=== PATIENT | female | born 1955 | race Caucasian/White ===

== ENCOUNTER 2024-10-22 10:44 | Outpatient (CLI) | payer MEDICARE, SELFPAY ==
--- NOTE | ~2024-10-22 | XR_ITS ---
XR abdomen/kub 1V Ordering provider: Clifford Kiran MD History: . RENAL MASS . Comparison: None. FINDINGS: BOWEL: Nonobstructive bowel gas pattern. ORGANOMEGALY: None. SIGNIFICANT PATHOLOGIC CALCIFICATIONS: None. OTHER: No free air is seen under the diaphragm. Bilateral arthroplasty. Pubic symphysitis. Levoscolio sis. Degenerative spine. IMPRESSION: NO ACUTE ABDOMINAL FINDINGS. Reviewed, dictated and finalized at location A.
--- NOTE | ~2024-10-22 | CT_ITS ---
CT of the Abdomen and Pelvis: Indication: Renal mass Technique: 2.5 mm axial scans were obtained through the abdomen and pelvis prior to and following in travenous administration of 100 cc of Omnipaque 350. Dose reduction technique was used on this scan b y utilizing automated exposure control and iterative reconstruction technique. The dose-length produc t (DLP) was 382.85 mGy-cm. Findings: Scans through the lung bases are unremarkable. The liver, spleen, pancreas, gallbladder, and adrenal glands are within normal limits. Bilateral simp le renal cysts are present. There is decreased parenchymal enhancement at the upper to midpole right kidney which could reflect pyelonephritis. There are extensive atherosclerotic calcifications of the aorta and iliac vessels. No lymphadenopathy. No bowel obstruction or bowel wall thickening. There is no evidence to suggest acute appendicitis. Images through the pelvis are degraded by streak artifact from bilateral hip arthroplasty. Urinary bl adder poorly imaged. No definite pelvic mass seen. No definite ascites. Impression: Decreased parenchymal enhancement at the upper to midpole the right kidney, which could reflect pyelo nephritis. Bilateral simple renal cysts. No suspicious renal mass seen. Reviewed, dictated and finalized at location . Impression: Decreased parenchymal enhancement at the upper to midpole the right kidney, whi ch could reflect pyelonephritis. Bilateral simple renal cysts. No suspicious renal mass seen.
--- OUTSIDE RECORDS SUMMARY | 2024-10-22 11:27 | XMS_ITS | Data Portability ---
Author Organization [facility]MarcieCorrection[facility] Address [address] [place] [address] Care Team Providers Care Packaging Clerk Name Role Phone OVIDIO DOWNEY Primary Care Provider Assessment No assessment recorded. Plan of Treatment Reminders Order Date Submit Date Provider Last Modified By Organization Details Last Modified Time Details Appointments ANY 2024 01:45P Evelyne Downey, DO Not available Not available Not available ANY 2024 07:30A Evelyne Downey, DO Not available Not available Not available Lab BMP, serum or plasma 2024 025 [email or web address] [facility], [facility], [facility] [address], [place], [address], 07/16/2024 08:54:35 TSH + free T4, serum 2024 025 [facility], [address], [facility] [address], [place], [address], 07/16/2024 08:54:35 CBC w/ auto diff 2024 025 [facility], [address], [address], [place], [address], 07/16/2024 08:54:35 lipid panel, serum 2024 025 [email or web address] [facility], [address], [address], [place], [address], 07/16/2024 08:54:35 hepatic functio n panel, serum 2024 025 [email or web address] [facility], [address], [address], [place], [address], 07/16/2024 08:54:35 vitamin B12, serum 2024 025 [email or web address] [facility], [address], [address], [place], [address], 07/16/2024 08:54:35 urinaly sis, dipstic k 2023 024 [email or web address] In-Office Order, Internal Use Only DO Not Attach Compendium DO Not Attach Compendium, Do Not Delete/merge, [id number] 01/13/2024 10:16:30 urinaly sis, complet e 2023 024 WEAVER [facility], [address], [address], [place], [address], 12/21/2023 06:00:12 CBC w/ auto diff 2023 024 JOSIAH [facility], [address], [address], [place], [address], 12/21/2023 06:00:12 BMP, serum or plasma 2023 024 WEAVER [facility], [address], [address], [place], [address], 12/21/2023 06:00:11 vitamin B12, serum 2023 024 [facility], [address], [address], [place], [address], 12/21/2023 06:00:13 vitamin D, 25-hydr oxy, total, serum 2023 024 [facility], [address], [address], [place], [address], 12/21/2023 06:00:13 lipid panel, serum 2023 024 [facility], [address], [address], [place], [address], 12/21/2023 06:00:10 hepatic functio n panel, serum 2023 024 [facility], [address], [address], [place], [address], 12/21/2023 06:00:11 TSH + free T4, serum 2023 024 [facility], [address], [address], [place], [address], 08/02/2023 06:47:35 Referral gynecol ogist referra l 2023 024 [email or web address] [facility], [address] [facility] , [address], [place], [address], 01/13/2024 10:16:30 Procedures None recorde d. Surgeries None recorde d. Imaging US, renal 2024 025 [facility] Patient Access Centralized Scheduling, Centralized Scheduling, [address], [place], [address], 09/13/2024 21:05:34 Medication Orders levothy roxine 50 mcg tablet 2024 025 [email or web address] [facility] [place], [address], 08/23/2024 18:25:54 cyanoco balamin (vit B-12) 1,000 mcg/mL injecti on solutio n 2024 025 [email or web address] [facility], [facility] [place], [address], 08/23/2024 18:25:54 Macrobi d 100 mg capsule 2023 025 [id number], [address] [facility], [place], [place], [id number], 08/15/2024 17:52:19 Patient TargetsNo targets recorded. Patient InstructionsNo instructions recorded. Reason for Referral Licensing And Registration Director Referral for Ho rmone replacement therapy Referring Physician: Ovidio Downey, Family Medicine, Encounter Date: 01/13/2024 Results Created Date Observation Date Name Description Value Unit Range Abnormal Flag Note LastModifiedBy Organization Detail LastModifiedTime 08/01/19 24 08/02/2023 TSH+F REE T4 TSH 3.27 mIU/L 0.40-4 .50 normal Not Available [facility] [address], [address], 08/02/2023 06:47:35 08/01/19 24 08/02/2023 TSH+F REE T4 T4, free 1.1 NG/dL 0.8-1. 8 normal Not Available [facility] [address], [address], 08/02/2023 06:47:35 09/19/19 24 09/20/2023 MEASL ES, MUMPS , AND RUBEL LA (MMR) AB (IGG) PANEL , IMMUN E STATU S measles Ab (IgG), immune status <13.50 AU/mL low AU/mL Inter preta tion ----- ----- ----- ---- <13.5 0 Not consi stent with immun ity 13.50 -16.4 9 Equiv ocal >16.4 9 Consi stent with immun ity The prese nce of measl es IgG sugge sts immun izati on or past or curre nt infec tion with measl es virus . For addit ional infor alejandra ochoa e refer to http: //riri gunn.Que stDia gnost ics.c om/fa q/FAQ 162 (This link is being provi ded for infor nury murphy/ educa raza l ashleyo ses only. ) Not Available [facility] [address] [address] [place], [address], 09/20/2023 13:40:35 09/19/19 24 09/20/2023 MEASL ES, MUMPS , AND RUBEL LA (MMR) AB (IGG) PANEL , IMMUN E STATU S mumps virus Ab (IgG), immune status 91.80 AU/mL normal AU/mL Inter preta tion ----- -- ----- ----- ----- - <9.00 Not consi stent with immun ity 9.00- 10.99 Equiv ocal >10.9 9 Consi stent with immun ity The prese nce of mumps IgG antib real sugge sts immun izati on or past or curre nt infec tion with mumps virus . Not Available [facility] [address] [address] [place], [address], 09/20/2023 13:40:35 09/19/19 24 09/20/2023 MEASL ES, MUMPS , AND RUBEL LA (MMR) AB (IGG) PANEL , IMMUN E STATU S rubella Ab (IgG), immune status 9.17 index normal Index Inter preta tion ----- ----- ----- ---- <0.90 Not consi stent with immun ity 0.90- 0.99 Equiv ocal > or = 1.00 Consi stent with immun ity The prese nce of rubel la IgG antib real sugge sts immun izati on or past or curre nt infec tion with rubel la virus . Not Available [facility] [address] [place], [address], 09/20/2023 13:40:35 12/20/19 24 12/21/2023 LIPID PANEL WITH RATIO S cholesterol, total 196 mg/dL <200 normal Not Available [facility] [id number] [place], [address], 12/21/2023 06:00:10 12/20/19 24 12/21/2023 LIPID PANEL WITH RATIO S HDL cholesterol 89 mg/dL > or = 50 normal Not Available [facility] [address] [address] [place], [address], 12/21/2023 06:00:10 12/20/19 24 12/21/2023 LIPID PANEL WITH RATIO S triglyceride s 65 mg/dL <150 normal Not Available [facility] [address] [address] [place], [address], 12/21/2023 06:00:10 12/20/19 24 12/21/2023 LIPID PANEL WITH RATIO S LDL-choleste rol 92 mg/dL _(danny c) normal Refer ence range : <100 Shawn able range <100 mg/dL for prima ry preve ntion ; <70 mg/dL for patie nts with CHD or diabe tic patie nts with > or = 2 CHD risk facto rs. LDL-C is now calcu lated using the Hansa n-Hop kins angelou karthikeyan n, which is a valid ated novel logan kang than the Fried huong equat ion in the estim ation of LDL-C . Hansa gunn SS et al. MIKHAIL. 2013; 310(1 9): 2061- 2068 (http ://ed ucati on.Qu Jourdan morton tics. com/f aq/FA Q164) Not Available [facility] [address] [place], [address], 12/21/2023 06:00:10 12/20/19 24 12/21/2023 LIPID PANEL WITH RATIO S chol/HDLC ratio 2.2 (calc ) <5.0 normal Not Available [facility] [address] [address] [place], [address], 12/21/2023 06:00:10 12/20/19 24 12/21/2023 LIPID PANEL WITH RATIO S LDL/HDL ratio 1.0 (calc ) Below avera ge Risk: <2.34 [place] ge Risk: 2.35- 4.12 Moder ate Risk: 4.13- 5.56 High Risk: >5.57 Not Available [address], [address], 12/21/2023 06:00:10 12/20/19 24 12/21/2023 LIPID PANEL WITH RATIO S non HDL cholesterol 107 mg/dL _(danny c) <130 normal For patie nts with diabe tim plus 1 major ASCVD risk facto r, treat ing to a non-H DL-C goal of <100 mg/dL (LDL- C of <70 mg/dL ) is consi yousuf a ruth peuti c optio n. Not Available [address], [address], 12/21/2023 06:00:10 12/20/19 24 12/21/2023 BASIC METAB OLIC PANEL glucose 85 mg/dL 65-99 normal Fasti ng refer ence inter aliza Not Available [address], [address], 12/21/2023 06:00:11 12/20/19 24 12/21/2023 BASIC METAB OLIC PANEL urea nitrogen (BUN) 17 mg/dL 7-25 normal Not Available [address], [address], 12/21/2023 06:00:11 12/20/19 24 12/21/2023 BASIC METAB OLIC PANEL creatinine 0.86 mg/dL 0.50-1 .05 normal Not Available [address], [address], 12/21/2023 06:00:11 12/20/19 24 12/21/2023 BASIC METAB OLIC PANEL eGFR 74 mL/mi n/1.7 3m2 > or = 60 normal Not Available [address] [place], [address], 12/21/2023 06:00:11 12/20/19 24 12/21/2023 BASIC METAB OLIC PANEL BUN/creatini ne ratio SEE NOTE: (calc ) 6-22 Not Repor annita: BUN and Creat inine are withi n refer ence range . Not Available [address], [address], 12/21/2023 06:00:11 12/20/19 24 12/21/2023 BASIC METAB OLIC PANEL sodium 139 mmol/ L 135-14 6 normal Not Available [address], [address], 12/21/2023 06:00:11 12/20/19 24 12/21/2023 BASIC METAB OLIC PANEL potassium 4.4 mmol/ L 3.5-5. 3 normal Not Available [address], [address], 12/21/2023 06:00:11 12/20/19 24 12/21/2023 BASIC METAB OLIC PANEL chloride 104 mmol/ L 98-110 normal Not Available [address], [address], 12/21/2023 06:00:11 12/20/19 24 12/21/2023 BASIC METAB OLIC PANEL carbon dioxide 26 mmol/ L 20-32 normal Not Available [address], [address], 12/21/2023 06:00:11 12/20/19 24 12/21/2023 BASIC METAB OLIC PANEL calcium 9.1 mg/dL 8.6-10 .4 normal Not Available [address], [address], 12/21/2023 06:00:11 12/20/19 24 12/21/2023 HEPAT IC FUNCT ION PANEL protein, total 6.8 g/dL 6.1-8. 1 normal Not Available [address], [address], 12/21/2023 06:00:11 12/20/19 24 12/21/2023 HEPAT IC FUNCT ION PANEL albumin 4.4 g/dL 3.6-5. 1 normal Not Available [address], [address], 12/21/2023 06:00:11 12/20/19 24 12/21/2023 HEPAT IC FUNCT ION PANEL globulin 2.4 g/dL_ (calc ) 1.9-3. 7 normal Not Available [address], [address], 12/21/2023 06:00:11 12/20/19 24 12/21/2023 HEPAT IC FUNCT ION PANEL albumin/glob ulin ratio 1.8 (calc ) 1.0-2. 5 normal Not Available [address], [address], 12/21/2023 06:00:11 12/20/19 24 12/21/2023 HEPAT IC FUNCT ION PANEL bilirubin, total 1.3 mg/dL 0.2-1. 2 high Not Available [address], [address], 12/21/2023 06:00:11 12/20/19 24 12/21/2023 HEPAT IC FUNCT ION PANEL bilirubin, direct 0.2 mg/dL < or = 0.2 normal Not Available [address], [address], 12/21/2023 06:00:11 12/20/19 24 12/21/2023 HEPAT IC FUNCT ION PANEL bilirubin, indirect 1.1 mg/dL _(danny c) 0.2-1. 2 normal Not Available [address], [address], 12/21/2023 06:00:11 12/20/19 24 12/21/2023 HEPAT IC FUNCT ION PANEL alkaline phosphatase 61 U/L 37-153 normal Not Available [facility] [place] [facility] [address], [address], 12/21/2023 06:00:11 12/20/19 24 12/21/2023 HEPAT IC FUNCT ION PANEL AST 19 U/L 10-35 normal Not Available [address], [address], 12/21/2023 06:00:11 12/20/19 24 12/21/2023 HEPAT IC FUNCT ION PANEL ALT 16 U/L 6-29 normal Not Available [address], [address], 12/21/2023 06:00:11 12/20/19 24 12/21/2023 URINA LYSIS , COMPL ETE color YELLOW yellow normal Not Available [address], [address], 12/21/2023 06:00:12 12/20/19 24 12/21/2023 URINA LYSIS , COMPL ETE appearance CLOUDY clear abnormal Not Available [address], [address], 12/21/2023 06:00:12 12/20/19 24 12/21/2023 URINA LYSIS , COMPL ETE specific gravity 1.007 1.001- 1.035 normal Not Available [address], [address], 12/21/2023 06:00:12 12/20/19 24 12/21/2023 URINA LYSIS , COMPL ETE pH 5.5 5.0-8. 0 normal Not Available [address], [address], 12/21/2023 06:00:12 12/20/19 24 12/21/2023 URINA LYSIS , COMPL ETE glucose NEGATI VE negati ve normal Not Available [address], [address], 12/21/2023 06:00:12 12/20/19 24 12/21/2023 URINA LYSIS , COMPL ETE bilirubin NEGATI VE negati ve normal Not Available [address], [address], 12/21/2023 06:00:12 12/20/19 24 12/21/2023 URINA LYSIS , COMPL ETE ketones NEGATI VE negati ve normal Not Available [facility] [address], [address], 12/21/2023 06:00:12 12/20/19 24 12/21/2023 URINA LYSIS , COMPL ETE occult blood NEGATI VE negati ve normal Not Available [address] [place], [address], 12/21/2023 06:00:12 12/20/19 24 12/21/2023 URINA LYSIS , COMPL ETE protein NEGATI VE negati ve normal Not Available [facility] [address] [place], [address], 12/21/2023 06:00:12 12/20/19 24 12/21/2023 URINA LYSIS , COMPL ETE nitrite NEGATI VE negati ve normal Not Available [facility] [address] [place], [address], 12/21/2023 06:00:12 12/20/19 24 12/21/2023 URINA LYSIS , COMPL ETE leukocyte esterase 3+ negati ve abnormal Not Available [facility] [address] [place], [address], 12/21/2023 06:00:12 12/20/19 24 12/21/2023 URINA LYSIS , COMPL ETE WBC > OR = 60 /hpf < or = 5 abnormal Not Available [address], [address], 12/21/2023 06:00:12 12/20/19 24 12/21/2023 URINA LYSIS , COMPL ETE RBC NONE SEEN /hpf < or = 2 normal Not Available [address], [address], 12/21/2023 06:00:12 12/20/19 24 12/21/2023 URINA LYSIS , COMPL ETE squamous epithelial cells 0-5 /hpf < or = 5 Not Available [address], [address], 12/21/2023 06:00:12 12/20/19 24 12/21/2023 URINA LYSIS , COMPL ETE bacteria MODERA TE /hpf none seen abnormal Not Available [address], [address], 12/21/2023 06:00:12 12/20/19 24 12/21/2023 URINA LYSIS , COMPL ETE hyaline cast NONE SEEN /lpf none seen normal Not Available [address], [address], 12/21/2023 06:00:12 12/20/19 24 12/21/2023 CBC (INCL UDES DIFF/ PLT) white blood cell count 6.8 thous and/u L 3.8-10 .8 normal Not Available [address], [address], 12/21/2023 06:00:12 12/20/19 24 12/21/2023 CBC (INCL UDES DIFF/ PLT) red blood cell count 4.90 madalyn on/uL 3.80-5 .10 normal Not Available [address], [address], 12/21/2023 06:00:12 12/20/19 24 12/21/2023 CBC (INCL UDES DIFF/ PLT) hemoglobin 13.5 g/dL 11.7-1 5.5 normal Not Available [address], [address], 12/21/2023 06:00:12 12/20/19 24 12/21/2023 CBC (INCL UDES DIFF/ PLT) hematocrit 42.2 % 35.0-4 5.0 normal Not Available [address], [address], 12/21/2023 06:00:12 12/20/19 24 12/21/2023 CBC (INCL UDES DIFF/ PLT) MCV 86.1 fL 80.0-1 00.0 normal Not Available [address], [address], 12/21/2023 06:00:12 12/20/19 24 12/21/2023 CBC (INCL UDES DIFF/ PLT) MCH 27.6 pg 27.0-3 3.0 normal Not Available [address], [address], 12/21/2023 06:00:12 12/20/19 24 12/21/2023 CBC (INCL UDES DIFF/ PLT) MCHC 32.0 g/dL 32.0-3 6.0 normal Not Available [address], [address], 12/21/2023 06:00:12 12/20/19 24 12/21/2023 CBC (INCL UDES DIFF/ PLT) RDW 13.3 % 11.0-1 5.0 normal Not Available [address], [address], 12/21/2023 06:00:12 12/20/19 24 12/21/2023 CBC (INCL UDES DIFF/ PLT) platelet count 232 thous and/u L 140-40 0 normal Not Available [address], [address], 12/21/2023 06:00:12 12/20/19 24 12/21/2023 CBC (INCL UDES DIFF/ PLT) MPV 11.4 fL 7.5-12 .5 normal Not Available [address], [address], 12/21/2023 06:00:12 12/20/19 24 12/21/2023 CBC (INCL UDES DIFF/ PLT) absolute neutrophils 3876 cells /uL 1500-7 800 normal Not Available [address], [address], 12/21/2023 06:00:12 12/20/1912/21/2023 CBC (INCL UDES DIFF/ PLT) absolute lymphocytes 1516 cells /uL 850-39 00 normal Not Available [address], [address], 12/21/2023 06:00:12 12/20/1912/21/2023 CBC (INCL UDES DIFF/ PLT) absolute monocytes 728 cells /uL 200-95 0 normal Not Available [address], [address], 12/21/2023 06:00:12 12/20/19 24 12/21/2023 CBC (INCL UDES DIFF/ PLT) absolute eosinophils 598 cells /uL 15-500 high Not Available [address], [address], 12/21/2023 06:00:12 12/20/19 24 12/21/2023 CBC (INCL UDES DIFF/ PLT) absolute basophils 82 cells /uL 0-200 normal Not Available [address], [address], 12/21/2023 06:00:12 12/20/19 24 12/21/2023 CBC (INCL UDES DIFF/ PLT) neutrophils 57 % normal Not Available [address], [address], 12/21/2023 06:00:12 12/20/19 24 12/21/2023 CBC (INCL UDES DIFF/ PLT) lymphocytes 22.3 % normal Not Available [address], [address], 12/21/2023 06:00:12 12/20/19 24 12/21/2023 CBC (INCL UDES DIFF/ PLT) monocytes 10.7 % normal Not Available [address], [address], 12/21/2023 06:00:12 12/20/19 24 12/21/2023 CBC (INCL UDES DIFF/ PLT) eosinophils 8.8 % normal Not Available [address], [address], 12/21/2023 06:00:12 12/20/19 24 12/21/2023 CBC (INCL UDES DIFF/ PLT) basophils 1.2 % normal Not Available [address], [address], 12/21/2023 06:00:12 12/20/19 24 12/21/2023 VITAM IN B12 vitamin B12 342 pg/mL 200-11 00 normal Pleas e Note: Altho ugh the refer ence range for vitam in B12 is 200-1 100 pg/mL , it has been repor annita that betwe en 5 and 10% of patie nts with value s betwe en 200 and 400 pg/mL may exper ience neuro psych iatri c and hemat ologi c abnor malit ies due to occul t B12 defic iency ; less than 1% of patie nts with value s above 400 pg/mL will have sympt oms. Not Available [facility] [address] [place], [address], 12/21/2023 06:00:13 12/20/19 24 12/21/2023 VITAM IN D,25- OH,TO SONIA,I A vitamin D,25-oh,tota l,ia 36 NG/mL 30-100 normal Vitam in D Statu s 25-OH Vitam in D: Defic iency : <20 ng/mL Insuf ficie ncy: 20 - 29 ng/mL Optim al: > or = 30 ng/mL For 25-OH Vitam in D testi ng on patie nts on D2-garcía pplem entat ion and patie nts for whom quant itati on of D2 and D3 fract ions is requi red, the [facility](TM ) 25-OH VIT D, (D2,D 3), LC/MS /MS is recom tutu d: order code 88971 (edmund ents >2yrs ). See Note 1 Note 1 For addit ional infor alejandra ochoa refer to http: //[facility] Titus stDia gnost ics.c om/fa q/FAQ 199 (This link is being provi ded for infor nury murphy/ harry galindo purpo ses only. ) Not Available [employer] [facility] [address] [place], [address], 12/21/2023 06:00:13 01/13/20 24 01/13/2024 urina lysis , dipst ick Leukocytes Small Not Available In-Offi ce Order Internal Use Only DO Not Attach Compendium DO Not Attach Compendium, Do Not Delete/merge, [id number] 01/13/2024 08:53:09 01/13/20 24 01/13/2024 urina lysis , dipst ick Nitrite negati ve Not Available In-Office Order Internal Use Only DO Not Attach Compendium DO Not Attach Compendium, Do Not Delete/merge, [id number] 01/13/2024 08:53:09 01/13/20 24 01/13/2024 urina lysis , dipst ick Urobilinogen .2 Not Available In-Of fice Order Internal Use Only DO Not Attach Compendium DO Not Attach Compendium, Do Not Delete/merge, 01/13/2024 08:53:09 01/13/20 24 01/13/2024 urina lysis , dipst ick Protein Negati ve Not Available In-Office Order Internal Use Only DO Not Attach Compendium DO Not Attach Compendium, Do Not Delete/merge, 01/13/2024 08:53:09 01/13/20 24 01/13/2024 urina lysis , dipst ick pH 5.5 Not Available In-Office Order Internal Use Only DO Not Attach Compendium DO Not Attach Compendium, Do Not Delete/merge, 01/13/2024 08:53:01/13/20 24 01/13/2024 urina lysis , dipst ick Blood Small Not Available In-Office Order Internal Use Only DO Not Attach Compendium DO Not Attach Compendium, Do Not Delete/merge, 01/13/2024 08:53:09 01/13/20 24 01/13/2024 urina lysis , dipst ick Specific Mary D 1.005 Not Available In-Off ice Order Internal Use Only DO Not Attach Compendium DO Not Attach Compendium, Do Not Delete/merge, 01/13/2024 08:53:09 01/13/20 24 01/13/2024 urina lysis , dipst ick Ketone Negati ve Not Available In-Office Order Internal Use Only DO Not Attach Compendium DO Not Attach Compendium, Do Not Delete/merge, 01/13/2024 08:53:09 01/13/20 24 01/13/2024 urina lysis , dipst ick Bilirubin Negati ve Not Available In-Office Order Internal Use Only DO Not Attach Compendium DO Not Attach Compendium, Do Not Delete/merge, 01/13/2024 08:53:09 01/13/20 24 01/13/2024 urina lysis , dipst ick Glucose Negati ve Not Available In-Office Order Internal Use Only DO Not Attach Compendium DO Not Attach Compendium, Do Not Delete/merge, 01/13/2024 08:53:09 01/13/20 24 01/13/2024 urina lysis , dipst ick Appearance Slight ly Cloudy Not Available In-Office Order Internal Use Only DO Not Attach Compendium DO Not Attach Compendium, Do Not Delete/merge, [id number] 01/13/2024 08:53:09 01/13/20 24 01/13/2024 urina lysis , dipst ick Color Yellow Not Available In-Office Order Internal Use Only DO Not Attach Compendium DO Not Attach Compendium, Do Not Delete/merge, [id number] 01/13/2024 08:53:09 10/14/19 24 10/14/2023 MAMMO , scree catalino, tomos ynthe sis, bilat eral No observ ation record ed. [facility] [address] [place], [address], 01/19/2024 16:15:07 02/26/20 24 02/22/2024 US, duple x, carot id arter y No observ ation record ed. [facility] [address] [facility] [address], [place], [address], 02/29/2024 17:41:55 02/28/20 24 02/28/2024 bone densi ty No observ ation record ed. [facility] [address] [facility] [address], [place], [address], 02/29/2024 20:05:48 02/29/20 24 02/22/2024 US, duple x, carot id arter y No observ ation record ed. [facility] [address] [facility] , [place], [address], 02/29/2024 20:06:03 08/10/19 25 08/01/2024 CT, abdom en + pelvi s, w/o contr ast No observ ation record ed. [facility], [place], [address], 08/23/2024 14:44:49 08/21/19 25 08/20/2024 imagi ng/di agnos tic resul t No observ ation record ed. [facility] [address] [place], [address], 08/23/2024 14:44:37 09/14/19 25 09/05/2024 US, renal No observ ation record ed. [facility] [address] [place], [address], 09/18/2024 09:04:23 09/28/19 25 08/27/2024 liver elast ograp hy, mecha nical ly induc ed shear wave (PROC ) No observ ation record ed. [facility]* [address] [place], [address], 09/27/2024 17:36:49 Result Notes None recorded. Problems Name Problem SNOMED Code Status Onset Date Resolution Date Notes Provider Name and Address Organization Details Recorded Time Chronic obstructive pulmonary disease 64381430 Active 2023 Ovidio Downey DO Attn: Margarette rodriges,[address] [place], [place], [address] [place] [address], [facility] 19:41:00 Hyperlipidemia 03766693 Active 2023 Ovidio Downey DO Attn: Margarette rodriges,[address] [place], [address], [facility] 4 19:41:01 Essential hypertension 81187275 Active 2023 Ovidio Downey DO Attn: Margarette rodriges,[address] [place], [address], [facility] [place] 4 19:41:02 Hypothyroidism [id number] Active 2023 Ovidio Downey DO Attn: Margarette rodriges,[address] [place] [id number]|2024-10-22 11:28:00|2024-10-22 11:27:00|XMS_ITS|SUNDAY JACOBS|External Medical Summaries|[id number]|" Data Portability Created on: October 22, 2024 Natalie Siu .[id number] : 1955 Sex: Female Author Organization [employer], [facility] Address [address] [address] Care Team Providers Care Packaging Clerk Name Role Phone LYNDSEY MIRANDA Primary Care Provider [phone] Assessment No assessment recorded. Plan of Treatment Reminders Order Date Submit Date Provider Last Modified By Organization Details Last Modified Time Details Appointments None recorded. Lab None recorded. Referral None recorded. Procedures None recorded. Surgeries None recorded. Imaging XR, hip, unilateral - rm: 15 2015 016 Not available 6 04:28:18 x-ray, hip - rm 3 2014 015 [email or web address] Not available 5 14:14:20 Medication Orders None recorded. Patient TargetsNo targets recorded. Patient Instructions Encounter Date Encounter Id Patient Instructions Last Modified By Organization Details Last Modified Time 02/05/2016 20983 hip arthritis: care instructions Not available 02/06/2016 08:41:05 osteoarthritis: care instructions Not available 02/06/2016 08:41:05 Reason for Referral None Reported. Results Created Date Observation Date Name Description Value Unit Range Abnormal Flag Note LastModifiedBy Organization Detail LastModifiedTime 02/06/20 16 11/25/2015 x-ray , hip No observ ation record ed. BARCODE Not Available 2015 11:14:52 Result Notes None recorded. Problems Name Problem SNOMED Code Status Onset Date Resolution Date Notes Provider Name and Address Organization Details Recorded Time Pain of hip region 15754207 Active [facility] [facility] [employer] [facility] 09/18/2014 12:16:35 Problem Notes None recorded. Procedures Surgical History Date Name Laterality Status Provider Name and Address Organization Details Recorded Time 7 Hysterectomy completed Asim Gottlieb [facility] [employer] [facility] [employer] [facility] 09/18/2014 12:19:36 Imaging Results Imaging Date Name Status LastModified by Organiz ation Details LastModified Time 11/25/2015 x-ray, hip completed BARCODE Information no t available 02/06/2016 11:14:52 Procedure Notes None recorded. Medical Equipment None Reported. Allergies Allergen ID Allergen Name Allergen Category Reaction Reaction Severity Criticality Documentation Date Start Date Code Code System Note Provider Name and Address Organization Details Recorded Time 89280 amoxicill in medicatio n Not available Not available Not available 09/18/2014 723 RxNorm [facility] 5 12:19:36 75300 tramadol medicatio n rash Not available Not available 02/05/2016 13031 RxNorm Yazmin Doe [facility] [employer] [facility] [employer] [facility] 6 14:30:29 Medications Name Sig Start Date Stop Date Status Note LastModified by Organization Details LastModified Time Crestor 20 mg tablet Take 1 tablet every day by oral route. active Not Available Not Available No t Available Estratest F.S. active Not Available Not Available Not Available Diovan active Not Available Not Availa ble Not Available Vitals Date Recorded Body weight Heart rate Body mass index (BMI) Body height Systolic blood pressure Diastolic blood pressure Provider Name and Address Organization Details Last Updated DateTime 5 44426.9 3781 g 77 /min 22.1 kg/m2 152.4 cm 150 mm[Hg] 81 mm[Hg] Asim Gottlieb [facility] [employer] [facility] 5 12:19:36 Social History Question Answer Notes LastModified by Organizat ion Details LastModified Time Tobacco Smoking Status Former Smoker [facility] [employer] [facility] [employer] [facility] 09/18/2014 12:19:35 Marital Status [email or web address] Informatio n not available 02/05/2016 Sex: Unknown Functional Status Question Answer Note LastModified by Organizat ion Details LastModified Time What is your level of alcohol consumption? 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 [email or web address] Information not available 02/05/2016 Mental Status None recorded. Family History Relationship Description Onset Age of this Age Resolved Age Notes LastModified by Organization Details LastModified Time Sister Substance abuse [email or web address] Not available 2014 12:19:36 Mother Arthritis [email or web address] Not available 09/18/2014 12:19:36 Medical History Condition Response HIV or AIDS N Coronary Artery Disease N Gout N Kidney Stones N Hyperthyroidism N Hernia N Head Trauma/Injury N COPD N Blood Clots N Lung Disease N Hypothyroidism N Depression N Pacemaker N Anxiety Disorder N Arthritis Y Cancer N Stroke N Neck Injury N Leg or Foot Ulcers N High Cholesterol Y Liver Disease N Rheumatoid Arthritis N Headaches N Fibromyalgia N Kidney Disease N Heart Problems N Migraines N Thyroid Problems N Anemia N Multiple Sclerosis N Ulcers N Heart Attack ([place]) N Diabetes N Bleeding Disorder N Seizures/Epilepsy N Tuberculosis N Urinary Tract Infection N Back Problems N Diverticulitis N Asthma N Lupus N Peripheral Vascular Disease N Sleep Disorder N GERD/Reflux N Hepatitis N Aneurysm N Heart Disease N Pulmonary Embolism N Hypertension Y Osteoporosis N Gynecological HistoryNo gynecological history recorded. Obstetrics History GPAL:G 0 P 0 0 0 0 Past Encounters Encounter ID Performer Location Encounter Start Date Encounter Closed Date Diagnosis/Indication Diagnosis SNOMED-CT Code Diagnosis ICD10 Code Diagnosis Note [id number] Dev Rubi MD [facility] [address] [place] [address] 09/18/2014 12:00:50 09/18/2014 14:14:20 Pain of hip region [id number] Dev Rubi MD [facility] [address] [place] [address] 02/05/2016 14:00:23 02/06/2016 10:43:51 Osteoarthritis of hip 620829486 M16.12 Health Concerns Section Related Observation LastModified by Organization Detai ls LastModified Time None Recorded Concern Status LastModified by Organization Details LastModified Time None Recorded Advance Directives Directive None Recorded Payers Encounter Date Sequence Insurance Name Policy Number Policy Zafar Covered Member ID Zafar Member ID Guarantor Name 09/18/2014 1 [place] CHO[place] [id number] Natalie Chambers [id number] Natalie Chambers 02/05/2016 1 [place] CHO[place] [id number] Natalie Chambers [id number] Natalie Chambers OBGyn Episode No OBEpisode recorded. "
--- OUTSIDE RECORDS SUMMARY | 2024-10-22 11:27 | XMS_ITS | Encounter Summary ---
Author Organization [facility] Care Team Providers Care Airconditioning Drafting Officer Name Role Phone Neil Mina DO Primary Care Provider + Neil Mina DO Unavailable [phone] Encounter Details Date Type Department Care Team (Latest Contact Info) Description 06/10/2017 Orders Only [facility] ProviderAntwan MD [address] [place] [id number] Social History Tobacco Use Types Packs/Day Years Used Date Smoking Tobacco: Never Assessed Comments Unknown Sex and Gender Information Value Date Recorded Sex Assigned at Not on file Legal Sex Female 2:29 AM CORPORATE FITNESS PROGRAM COORDINATOR Gender Identity Female 03/18/2020 5:41 AM CDT Sexual Orientation Straight 03/18/2020 5: 42 AM CDT documented as of this encounter Plan of Treatment Not on file documented as of this encounter Procedures Procedure Name Priority Date/Time Associated Diagnosis Comments CARDIOLOGY REPORT 06/10/2017 12: 00 AM CORPORATE FITNESS PROGRAM COORDINATOR documented in this encounter Results * CARDIOLOGY REPORT (06/10/2017 12:00 AM CORPORATE FITNESS PROGRAM COORDINATOR) Anatomical Region Laterality Modality Other Narrative 06/10/2017 12:00 AM CORPORATE FITNESS PROGRAM COORDINATOR Ordered by an unspecified provider. us Historical Provider [facility] JUAN CATALAN Final Result documented in this encounter Visit Diagnoses Not on filedocumented in this encounter Additional Health Concerns Infection Onset Date Last Indicated Resolved Time COVID: Suspected 10/05/2024 10/05/2024 10/05/2024 4:12 AM CDT documented as of this encounter Care Teams Airconditioning Drafting Officer Relationship Specialty Start Date End Date Neil Mina DO PCP - General Family Medicine 06/06/18 Neil Mina DO PCP - Rolo Attributed PCP 04/06/19 documented as of this encounter
--- OUTSIDE RECORDS SUMMARY | 2024-10-22 11:27 | XMS_ITS | Encounter Summary ---
Author Organization [facility] Care Team Providers Care Deputy Attorney General Name Role Phone Neil Mina DO Primary Care Provider + Neil Mina DO Unavailable [phone] Encounter Details Date Type Department Care Team (Latest Contact Info) Description 06/09/2017 Orders Only [facility]IN[facility] ProviderAntwan MD [address] [place] [address] Social History Tobacco Use Types Packs/Day Years Used Date Smoking Tobacco: Never Assessed Comments Unknown Sex and Gender Information Value Date Recorded Sex Assigned at Not on file Legal Sex Female 2:29 AM CONCRETE VIBRATOR OPERATOR Gender Identity Female 03/18/2020 5:41 AM CDT Sexual Orientation Straight 03/18/2020 5: 42 AM CDT documented as of this encounter Plan of Treatment Not on file documented as of this encounter Procedures Procedure Name Priority Date/Time Associated Diagnosis Comments SCAN - LABS 06/09/2017 12:00 AM CONCRETE VIBRATOR OPERATOR SCAN - LABS 06/09/2017 12:00 AM CONCRETE VIBRATOR OPERATOR SCAN - LABS 06/09/2017 12:00 AM CONCRETE VIBRATOR OPERATOR SCAN - LABS 06/09/2017 12:00 AM CONCRETE VIBRATOR OPERATOR SCAN - LABS 06/09/2017 12:00 AM CONCRETE VIBRATOR OPERATOR SCAN - LABS 06/09/2017 12:00 AM CONCRETE VIBRATOR OPERATOR SCAN - LABS 06/09/2017 12:00 AM CONCRETE VIBRATOR OPERATOR documented in this encounter Results * SCAN - LABS (06/09/2017 12:00 AM CONCRETE VIBRATOR OPERATOR) Narrative 06/09/2017 12:00 AM CONCRETE VIBRATOR OPERATOR Ordered by an unspecified provider. [facility] Provider Final Res ult * SCAN - LABS (06/09/2017 12:00 AM CONCRETE VIBRATOR OPERATOR) Narrative 06/09/2017 12:00 AM CONCRETE VIBRATOR OPERATOR Ordered by an unspecified provider. [facility] Provider Final Res ult * SCAN - LABS (06/09/2017 12:00 AM CONCRETE VIBRATOR OPERATOR) Narrative 06/09/2017 12:00 AM CONCRETE VIBRATOR OPERATOR Ordered by an unspecified provider. [facility] Provider Final Res ult * SCAN - LABS (06/09/2017 12:00 AM CONCRETE VIBRATOR OPERATOR) Narrative 06/09/2017 12:00 AM CONCRETE VIBRATOR OPERATOR Ordered by an unspecified provider. [facility] Provider Final Res ult * SCAN - LABS (06/09/2017 12:00 AM CONCRETE VIBRATOR OPERATOR) Narrative 06/09/2017 12:00 AM CONCRETE VIBRATOR OPERATOR Ordered by an unspecified provider. [facility] Provider Final Res ult * SCAN - LABS (06/09/2017 12:00 AM CONCRETE VIBRATOR OPERATOR) Narrative 06/09/2017 12:00 AM CONCRETE VIBRATOR OPERATOR Ordered by an unspecified provider. [facility] Provider Final Res ult * SCAN - LABS (06/09/2017 12:00 AM CONCRETE VIBRATOR OPERATOR) Narrative 06/09/2017 12:00 AM CONCRETE VIBRATOR OPERATOR Ordered by an unspecified provider. [facility] Provider Final Res ult documented in this encounter Visit Diagnoses Not on filedocumented in this encounter Additional Health Concerns Infection Onset Date Last Indicated Resolved Time COVID: Suspected 10/05/2024 10/05/202410/0510/05/2024 4:12 AM CDT documented as of this encounter Care Teams Deputy Attorney General Relationship Specialty Start Date End Date Neil Mina DO PCP - General Family Medicine 06/06/18 Neil Mina DO PCP - Rolo Attributed PCP 04/06/19 documented as of this encounter
--- OUTSIDE RECORDS SUMMARY | 2024-10-22 11:27 | XMS_ITS | Clinical Summary ---
Author Organization [facility] [place] [facility] Address [address] [place] [address] Care Team Providers Care Progressive Care Unit Registered Nurse Name Role Phone Neil Mina DO Primary Care Provider + Neil Mina DO Unavailable [phone] Allergies Active Allergy Reactions Criticality Noted Date Comments Amoxicillin Shortness of breath,Anaphylaxis High 06/09/2017 difficulty breathing Anaphylaxis Tramadol Nausea only Low 06/09/2017 severe nausea Tramadol Hcl Nausea & Vomiting Low 10/26/2018 nausea and vomiting Medications amLODIPine (NORVASC) 5 mg tablet TAKE 1 TABLET (5 MG TOTAL) BY MOUTH DAILY 90 tablet 1 3 Active levothyroxine (SYNTHROID) 50 mcg tablet TAKE 1 TABLET (50 MCG TOTAL) BY MOUTH MASONRY INSPECTOR BEFORE BREAKFAST 90 tablet 1 3 Active losartan (COZAAR) 100 mg tablet TAKE 1 TABLET (100 MG TOTAL) BY MOUTH DAILY 90 tablet 3 3 Active rosuvastatin (CRESTOR) 20 mg tablet TAKE 1 TABLET (20 MG TOTAL) BY MOUTH DAILY 90 tablet 1 3 Active fluticasone-ume clidin-vilanter (TRELEGY ELLIPTA) 100-62.5-25 mcg inhalerIndicati ons:Bronchospas m Prevention with COPD Inhale 1 puff daily 3 each 11 5 11/07/19 25 Active Active Problems Problem Noted Date Diagnosed Date Chest tightness 06/15/2023 Encounter for Medicare annual wellness exam 10/06 Assessment & Plan (11/03/2022 8:36 AM CDT): meds reviewed and reconciled History of right hip replacement 12/27/2017 Chronic obstructive pulmonary disease 10/20/2017 Overview (12/01/2018): Based on PFT data patient has moderate COPD. patient's sister has asthma. Symptoms progress with cold air exposure. Asthma COPD overlap syndrome would be in the differential Assessment & Plan (05/16/2023 9:18 AM CYTOLOGIST): Stable On trelegy Assessment & Plan (11/03/2022 8:37 AM CDT): Doing ok Assessment & Plan (01/06/2022 1:45 PM CDT): Moderate copd Staying inside Taking it easy Assessment & Plan (03/24/2021 7:46 AM CDT): Patient is well controlled. Continue current treatment. Dr. Lemon note reviewed Assessment & Plan (03/18/2020 7:53 AM CDT): Patient is well controlled. Continue current treatment. Dyslipidemia 04/19/2017 Assessment & Plan (05/16/2023 9:18 AM CYTOLOGIST): Patient is well controlled. Continue current treatment. Assessment & Plan (11/03/2022 8:39 AM CDT): lipid and lft Assessment & Plan (03/18/2020 7:53 AM CDT): Patient is well controlled. Continue current treatment. Check lab HTN (hypertension) 04/19/2017 Assessment & Plan (05/16/2023 9:18 AM CYTOLOGIST): Patient is well controlled. Continue current treatment. Assessment & Plan (11/03/2022 8:38 AM CDT): Patient is well controlled. Continue current treatment. Assessment & Plan (01/06/2022 1:45 PM CDT): Patient is well controlled. Continue current treatment. Assessment & Plan (03/24/2021 7:44 AM CDT): Patient is well controlled. Continue current treatment. Assessment & Plan (03/18/2020 7:52 AM CDT): Patient is well controlled. Continue current treatment. Assessment & Plan (12/01/2018 7:52 AM CDT): Patient is well controlled. Continue current treatment. Hypothyroidism 03/22/2016 Assessment & Plan (05/16/2023 9:19 AM CYTOLOGIST): Patient is well controlled. Continue current treatment. Assessment & Plan (11/03/2022 8:38 AM CDT): tsh and free t4 Assessment & Plan (01/06/2022 1:46 PM CDT): Cont levothyroxine Assessment & Plan (03/18/2020 7:52 AM CDT): lab Assessment & Plan (12/01/2018 7:52 AM CDT): Will obtain recent labs Osteoarthritis 03/22/2016 Resolved Problems Problem Noted Date Diagnosed Date Resolved Date Tension headache 09/23/2021 11/03/2022 Assessment & Plan (03/29/2022 12:52 PM CDT): Neurologically intact. Starts with neck spasms/tension and moves up scalp. Can continue tizanidine QHS/PRN. Offered kenalog 40 mg IM in glute today but patient wants to think about it - can schedule as nurse visit if she decides to get. Refer to pain management for possible trigger point injections. She's also considering care information associate. Return if headaches change in character, worsen, or become more frequent. Assessment & Plan (01/06/2022 1:48 PM CDT): Could not tolerate the flexeril meloxicam not helping Add tizanidine 4 mg tid prn X ray c spine Assessment & Plan (10/23/2021 11:17 AM CDT): Improving but still having a lot of upper neck tension. Massage helped but is expensive. Will try PT. Continue meloxicam and flexeril PRN. Assessment & Plan (09/23/2021 11:31 AM CDT): Suspect due to neck tension/muscle spasms. Start meloxicam and flexeril PRN. Heating pad to help soothe muscles. Gentle stretching advised. Acute right-sided thoracic back pain 07/06/2021 11/03/2022 Assessment & Plan (07/06/2021 10:50 AM CYTOLOGIST): Tender right thoracic musculature. Tylenol No. 3 1 q.8 p.r.n. UTI (urinary tract infection) 03/24/2021 11/03/2022 Assessment & Plan (03/24/2021 7:44 AM CDT): Check a ua cipro 500 mg bid 1 week Impacted cerumen of right ear 11/18/2020 03/24/2021 Hip pain 12/01/2018 11/03/2022 Annual physical exam 12/01/2018 023 Assessment & Plan (09/16/2020 7:41 AM CDT): Bone density Lab Aftercare following joint replacement surgery 04/14/20 17 03/24/2021 Female climacteric state 10/15/2016 Encounters Date Type Department Care Team Description 10/05/2024 2:29 AM CDT - 10/05/2024 6:06 AM CDT Emergency [address] [address] VelmaaiAileen etienne MD Chest pain, unspecified type (Primary Dx); Hypertensive urgency; Elevated serum creatinine Discharge Disposition: Discharge to home or self care 09/05/2024 10:33 AM CDT - 09/05/2024 11:59 PM CDT Hospital Encounter [facility] [place] [address] [place] [address] Cyst of kidney, acquired Discharge Disposition: Discharge to home or self care 08/15/2024 ACO Quality [facility] Accountable Care Organization [address] [place] [id number] Nicole Francis 08/08/2024 9:45 AM CYTOLOGIST Office Visit [facility] Pulmonology [address] [place] [address] Eliezer Lemon MD Dyspnea on exertion (Primary Dx); Chronic obstructive pulmonary disease, unspecified COPD type (HCC); Nicotine dependence, cigarettes, in remission from Last 3 Months Immunizations Immunization Administration Dates Next Due Influenza, Quad, Adjuvantate d, Intramuscular 03/13/2022 Influenza, Quadrivalent, Hig h Dose, Preservative Free, Intrr 03/24/2021 Influenza, Quadrivalent, Rec ombinant, Egg Free, Preservative Free, Intramuscular 03/18/2020 Influenza, Trivalent, IM (MDV) 04/19/2014,2012 Influenza, Trivalent, Preser vative Free, Intramuscular 04/19/2015 Influenza, Unspecified 03/14/2023(Deferred: Chel ent Refused) Pneumococcal Conjugate PCV 13 03/24/2021 Pneumococcal Polysaccharide PPV23 03/18/2020 ZOSTER LIVE 04/09/2013 ZOSTER Recombinant 08/06/2022,04/16/2022 Surgical History Surgery Date Site/Laterality Comments SHOULDER ARTHROPLASTY Bilateral COLONOSCOPY 06/06/2010 - 06/05/2011 HYSTERECTOMY 06/06/1976 - 06/05/1977 Dysplasia JOINT REPLACEMENT R Hip 2015 & L Hip 2016 OOPHORECTOMY 06/06/1976 - 06/05/1977 Bilateral Medical History Medical History Date Comments Hypertension Hypothyroid Back pain Dyspnea on exertion Menopausal symptom Urine frequency History of tobacco abuse Family History Medical History Relation Name Comments Breast cancer Cousin Heart disease Father Sreekanth Heart failure Father Sreekanth Cancer Maternal Grandmother Dawna Finesse Dementia Mother Ovarian cancer Neg Hx Uterine cancer Neg Hx Relation Name Status Comments Cousin Father Sreekanth Maternal Grandmother Dawna Kilpatrick Mother Alive Social History Tobacco Use Types Packs/Day Years Used Date Smoking Tobacco: Former Cigarettes 0.8 24 1 981 - 2005 Smokeless Tobacco: Never Tobacco Cessation:Counseling Given: Not Answered Alcohol Use Standard Drinks/Week Comments Yes 0 (1 standard drink = 0.6 oz pur e alcohol) AUDIT-C Answer Date Recorded Q1: How often do you have a drink containing alc ohol? 2-3 times a week 05/16/2023 Q2: How many drinks containi ng alcohol do you have on a typical day when you are drinking? 1 or 2 05/16/2023 Q3: How often do you have si x or more drinks on one occasion? Never 05/16/2023 PHQ-2 Answer Date Recorded PHQ-2 Total Score (If total score is 3 or more points, staff should administer the PHQ-9) 0 03/14/2023 Personal Safety Answer Date Recorded Have you ever been in or are you currently in a harmful physical or emotional relationship or is someone making you feel afraid or unsafe? Denies 10/05/2024 Comments No Sex and Gender Information Value Date Recorded Sex Assigned at Not on file Legal Sex Female 2:29 AM CYTOLOGIST Gender Identity Female 03/18/2020 5:41 AM CDT Sexual Orientation Straight 03/18/2020 5: 42 AM CDT Obstetrics History Para Term AB IAB SAB Ectopic Multiple Livin g Live Births 0 0 0 0 0 0 0 0 0 0 0 Last Filed Vital Signs Vital Sign Reading Time Taken Comments Blood Pressure 133/70 10/05/2024 5:30 AM CDT Pulse 90 10/05/2024 5:30 AM CDT Temperature 36.3 C (97.3 F) 10/04/2024 11:55 PM CDT Respiratory Rate 19 10/05/2024 5:30 AM CDT Oxygen Saturation 98% 10/05/2024 5:30 AM CDT Inhaled Oxygen Concentration - - Weight 45.4 kg (100 lb) 10/04/2024 11:55 PM CDT Height 154.9 cm (5' 1 ) 10/04/2024 11:55 PM CDT Body Mass Index 18.89 10/04/2024 11:55 PM CDT Plan of Treatment Health Maintenance Due Date Last Done Comments DTaP/Tdap/Td Vaccine (1 - Tdap) 1966 Hepatitis B Screening 1973 Fall Risk Assessment 11/04/2023 11/03/2022, 07/06/2021, 12/01/2018 Well Visit 65+ 11/04/2023 11/03/2022, 09/04, 12/01/2018 Covid-19 Vaccine (2023-07 5 season) 2024 04/03/2022, 11/01/2021, 04/12/2021, Additional history exists Depression Screening 03/14/2024 03/14/2023, 03/29/2022, 03/24/2021, Additional history exists Breast Cancer Screening-Mammogram 10/13/2024 10/14/2023, 09/10/2022, 07/17/2021, Additional history exists Influenza Vaccine (Season Ended) 2025 03/13/2022, 03/24/2021, 03/18/2020, Additional history exists Colon Cancer Screening-Colonoscopy 12/14/2025 12/15/2015 Osteoporosis Screening-Bone Density Scan 02/27/2026 02/28/2024, 07/17/2021, 01/07/2016, Additional history exists Colon Cancer Screening-CT Colonography Discontinued 12/15/2015 Colon Cancer Screening-DNA Stool Discontinued 12/15/19 16 Colon Cancer Screening-FIT Discontinued 12/15/2015 Colon Cancer Screening-Sigmoidoscopy Discontinued 12/15/2015 Hepatitis C Screening Completed 03/13/2021, 021 Pneumococcal vaccine 65+ Completed 03/24/2021, 03/06 Zoster Vaccine Completed 08/06/2022, 04/06, 04/09/2013 Procedures Procedure Name Priority Date/Time Associated Diagnosis Comments TROPONIN T HIGH-SENSITIVITY 4-HR Timed 10/05/2024 4:43 AM CDT URINALYSIS AND REFLEX TO MICROSCOPIC AND CULTURE STAT 10/05/2024 3:23 AM CDT INFLUENZA A/B, RSV, AND COVID-19 PCR STAT 10/05/2024 3:23 AM CDT TROPONIN T HIGH-SENSITIVITY 2-HOUR Timed 10/05/2024 2:41 AM CDT EGFR STAT 10/05/2024 12:31 AM CDT DIFFERENTIAL AUTO STAT 10/05/2024 12: 31 AM CDT TROPONIN T HIGH-SENSITIVITY SERIES (BASELINE, 2HR, 4HR, 6HR) STAT 10/05/2024 12:31 AM CDT COMPREHENSIVE METABOLIC PANEL STAT 10/05/2024 12:31 AM CDT CBC WITH AUTO DIFFERENTIAL STAT 10/05/2024 12:31 AM CDT XR CHEST 1 VIEW ED 10/05/2024 12:24 AM CDT ECG 12-LEAD STAT 10/05/2024 12:17 AM CDT US KIDNEY COMPLETE Schedule Routine, Read Routine (OP Routine) 09/05/2024 11:12 AM CDT Cyst of kidney, acquired DEXA AXIAL SKELETON BONE DENSITY 1 OR MORE SITES Schedule Routine, Read Routine (OP Routine) 02/28/2024 8:37 AM CDT Encounter for screening for osteoporosis SCREENING MAMMOGRAM BILATERAL W AMADO Schedule Routine, Read Routine (OP Routine) 10/14/2023 2:14 PM CDT Screening mammogram, encounter for HEPATITIS C ANTIBODY Routine 03/13/2021 7:13 AM CDT Annual physical exam Essential hypertension COLONOSCOPY Routine 12/15/2015 from Last 3 Months or Most Recently Relevant to Health Maintenance Results * Troponin T high-sensitivity 4-hour (10/05/2024 4:43 AM CDT) Trop T hs 6 <=14 ng/L Comment: Interpretive Data For further hscTnT resources including the diagnostic algorithm and an aid in interpretation, copy and paste this link: https://nrl.testcatalog.org/show/hsTrop Current Interpretive Data last revised 2020. Trop T hs delta -2 ng/L MONY Trop T hs interp Insignificant MONY Blood 10/05/2024 4:43 AM CDT 10/05/2024 4:45 AM CDT Aileen Resendiz MD LAB BLOOD ORDERABLES F inal Result Performing Organization Address [facility] Co de Phone Number [facility] [address] [place] [address] [address] [place], [place] [id number] * Influenza A/B, RSV, and COVID-19 PCR Nasopharyngeal (10/05/2024 3:23 AM CDT) COVID-19 RNA Negative Negative Influenza A RNA Negative Negative MONY Influenza B RNA Negative Negative [facility] RSV RNA Negative Negative [facility] Comment: Interpretive data: Testing performed by [facility]. This test is performed using the [facility] Xpert Xpress CoV-2/Flu/RSV plus assay. This is a multiplex, real-time reverse transcriptase PCR assay intended for the qualitative detection of nucleic acid from SARS-CoV-2, influenza A, influenza B, and respiratory syncytial virus. This assay has been cleared by the [place] Food and Drug administration. The performance characteristics have been verified by the [facility]. Results must be considered in the clinical context, and a negative result does not rule out infection. Interpretive Data last revised 2023 Nasopharyngeal 10/05/2024 3: 23 AM CDT 10/05/2024 3:27 AM CDT Narrative MONY - 10/05/2024 4:11 AM CDT Is the Patient experiencing symptoms consistent with COVID?->Yes Aileen Resendiz MD LAB MICROBIOLOGY - GEN ERAL ORDERABLES Final Result Performing Organization Address [facility]/ZIP Co de Phone Number [place] [id number] [facility] [place] [address] * Urinalysis reflex to microscopic and culture Urine (10/05/2024 3:23 AM CDT) Color, ur Straw Yellow Clarity, ur Clear Clear [facility] Specific gravity, ur 1.004 1.003 - 1.030 [facility] pH, urine 7.0 [facility] Comment: Interpretive Data U rine pH is affected by diet, medications, systemic acid-base disturbances, and renal tubular function. pH may affect urinary stone formation. For example, urine pH below 6.0 may help reduce the tendency for calcium phosphate stones and pH greater than 6.0 may reduce the tendency for uric acid stone formation. Source: [facility] Current Interpretive Data was last revised on 2017 Protein, ur ql Negative Negative [facility] Glucose, ur ql Negative Negative [facility] Ketones, ur Negative Negative [facility] Bilirubin, ur Negative Negative [facility] Blood, ur Negative Negative [facility] Urobilinogen, ur <2.0 <2.0 mg/dL [facility] Nitrite, ur Negative Negative [facility] Leukocyte esterase, ur Negative Negative [facility] UA reflex comment Reflex conditions for microscopic UA and culture not met. [facility] Urine 10/05/2024 3:23 AM CDT 10/05/2024 3:26 AM CDT Aileen Resendiz MD LAB MICROBIOLOGY - GEN ERAL ORDERABLES Final Result [facility] [address] Department [place] [address] * Troponin T high-sensitivity 2-hour (10/05/2024 2:41 AM CDT) Trop T hs 7 <=14 ng/L Comment: Interpretive Data For further hscTnT resources including the diagnostic algorithm and an aid in interpretation, copy and paste this link: https://nrl.testcatalog.org/show/hsTrop Current Interpretive Data last revised 2020. Trop T hs delta -1 ng/L [facility] Trop T hs interp Insignificant [facility] Blood 10/05/2024 2:41 AM CDT 10/05/2024 2:46 AM CDT Aileen Resendiz MD LAB BLOOD ORDERABLES F inal Result Performing Organization Address [facility] Co de Phone Number MONY [address] [facility] [place] [address] * Troponin T high-sensitivity series (baseline, 2hr, 4hr, 6hr) (10/05/2024 12:31 AM CDT) Trop T hs 8 <=14 ng/L Comment: Interpretive Data For further hscTnT resources including the diagnostic algorithm and an aid in interpretation, copy and paste this link: https://nrl.testcatalog.org/show/hsTrop Current Interpretive Data last revised 2020. Blood 10/05/2024 12:3 1 AM CDT 10/05/2024 12:35 AM CDT Aileen Resendiz MD LAB BLOOD ORDERABLES F inal Result Performing Organization Address [facility] Co de Phone Number MONY [address] [facility] [place] [address] * (ABNORMAL) eGFR (10/05/2024 12:31 AM CDT) eGFR 53(L) >=60 mL/min/1. 73 m2 Comment: Interpretive Data Reference Interval Normal >/= 90 mL/min/1.73m2 Mildly decreased* 60 - 89 mL/min/1.73m2 Mildly to moderately decreased 45 - 59 mL/min/1.73m2 Moderately to severely decreased 30 - 44 mL/min/1.73m2 Severely decreased 15 - 29 mL/min/1.73m2 Kidney Failure < 15 mL/min/1.73m2 *Relative to young adult level Estimated glomerular filtration rate is determined by the 2020 CKD-EPI equation recommended by the National Kidney Foundation (A Unifying Approach to GFR Estimation: Recommendations of the NKF-ASK Task Force on Reassessing the Inclusion of Race in Diagnosing Kidney Disease, JASN 2020). The CKD-EPI equation should not be used for patients with unstable renal function and has not been validated in children and those over 70. Current interpretive data was last reviewed 2021. Blood 10/05/2024 12:3 1 AM CDT 10/05/2024 12:35 AM CDT us Aileen Resendiz MD LAB BLOOD ORDERABLES F inal Result [facility] [address] Department [place] [address] * Differential, auto (10/05/2024 12:31 AM CDT) Pathologist [facility] Neutrophil abs 3.44 1.50 - 6.50 K/cumm Imm gran abs 0.09 0.00 - 0.10 K/cumm [facility] Lymphocyte abs 2.31 0.80 - 3.30 K/cumm [facility] Monocyte abs 0.71 0.20 - 0.80 K/cumm [facility] Eosinophil abs 0.26 0.00 - 0.50 K/cumm [facility] Basophil abs 0.06 0.00 - 0.10 K/cumm [facility] Neutrophil pct 50.1 % [facility] Comment: Interpretive Data Percent cell count reference ranges are not reported, since discordance with absolute values may lead to misinterpretation of CBC data. Current Interpretive Data was last revised on 2017. Imm gran pct 1.3 % [facility] Comment: Interpretive Data Percent cell count reference ranges are not reported, since discordance with absolute values may lead to misinterpretation of CBC data. Current Interpretive Data was last revised on 2017. Lymphocyte pct 33.6 % [facility] Comment: Interpretive Data Percent cell count reference ranges are not reported, since discordance with absolute values may lead to misinterpretation of CBC data. Current Interpretive Data was last revised on 2017. Monocyte pct 10.3 % [facility] Comment: Interpretive Data Percent cell count reference ranges are not reported, since discordance with absolute values may lead to misinterpretation of CBC data. Current Interpretive Data was last revised on 2017. Eosinophil pct 3.8 % [facility] Comment: Interpretive Data Percent cell count reference ranges are not reported, since discordance with absolute values may lead to misinterpretation of CBC data. Current Interpretive Data was last revised on 2017. Basophil pct 0.9 % [facility] Comment: Interpretive Data Percent cell count reference ranges are not reported, since discordance with absolute values may lead to misinterpretation of CBC data. Current Interpretive Data was last revised on 2017. Blood 10/05/2024 12:3 1 AM CDT 10/05/2024 12:35 AM CDT Aileen Resendiz MD LAB BLOOD ORDERABLES F inal Result [facility] [address] Department [place] [address] * (ABNORMAL) CBC with auto differential (10/05/2024 12:31 AM CDT) Pathologist [facility] WBC 6.87 3.80 - 9.90 K/cumm Hgb 13.1 11.9 - 15.5 g/dL [facility] Hct 41.1 35.6 - 45.5 % [facility] Plt 202 150 - 400 K/cumm [facility] MPV 10.7 9.1 - 12.3 fL [facility] RBC 4.77 3.90 - 5.20 M/cumm [facility] MCV 86.2 81.3 - 96.4 fL [facility] MCH 27.5 27.1 - 33.3 pg [facility] MCHC 31.9(L) 32.3 - 35.7 g/dL [facility] RDW CV 13.4 11.1 - 14.9 % [facility] RDW SD 41.9 35.7 - 48.1 fL [facility] NRBC abs 0.00 0.00 - 0.01 K/cumm [facility] Blood Venous blood specimen / Unknown 10/05/2024 12:31 AM CDT 10/05/2024 12:35 AM CDT Aileen Resendiz MD LAB BLOOD ORDERABLES F inal Result Performing Organization Address City/[facility] Co de Phone Number [facility] [address] Department of [place] [address] * (ABNORMAL) Comprehensive metabolic panel (10/05/2024 12:31 AM CDT) Sodium 138 135 - 145 mmol/L Potassium, pl 4.9 3.3 - 4.9 mmol/L [facility] Chloride 105 97 - 110 mmol/L [facility] CO2 23 22 - 32 mmol/L [facility] Anion gap 10 2 - 15 mmol/L [facility] BUN 22 6 - 25 mg/dL [facility] Creatinine 1.12(H) 0.60 - 1.10 mg/dL [facility] Glucose 106 70 - 199 mg/dL [facility] Comment: Interpretive Data Fasting glucose >/= 126 mg/dl is diagnostic for diabetes. Fasting is defined as no caloric intake for at least 8 hours. Fasting glucose between 100 mg/dl to 125 mg/dl is diagnostic of prediabetes. In a patient with classic symptoms of hyperglycemia or hyperglycemic crisis, a random glucose >/= 200 mg/dl is diagnostic for diabetes. In the absence of unequivocal hyperglycemia, results should be confirmed by repeat testing. The classification and Diagnosis of Diabetes Diabetes Care 202; 46: S19-S40. Current interpretive data was last revised 2022. Calcium 9.8 8.5 - 10.3 mg/dL [facility] Bilirubin, total 0.6 0.1 - 1.2 mg/dL [facility] Protein, pl 6.4(L) 6.5 - 8.5 g/dL [facility] Albumin 4.0 3.5 - 5.0 g/dL [facility] Alk phos 54 40 - 130 Units/L [facility] ALT 18 7 - 45 Units/L [facility] AST 22 10 - 45 Units/L [facility] Blood 10/05/2024 12:3 1 AM CDT 10/05/2024 12:35 AM CDT Aileen Resendiz MD LAB BLOOD ORDERABLES F inal Result Performing Organization Address [facility]/ZIP Co de Phone Number [facility] [address] [place] [address] * XR Chest 1 Vw Portable (if patient condition/safety warrant portable) (10/05/2024 12:24 AM CDT) Anatomical Region Laterality Modality Body, Chest N/A Computed Radiogr aphy 10/05/2024 12:5 2 AM CDT Narrative 10/05/2024 12:53 AM CDT EXAM DESCRIPTION: XR CHEST 1 VIEW REASON FOR STUDY: chest pain Pt came in ED, ambulatory with c/o Elevated BP with SBP reading 180's at home. Pt reports she hasn't been feeling well for the last couple of days, states like feeling of indigestion . Pt denies CP, SOB, fever, chills, N/V/D. Pt refuse to take off bra. TECHNIQUE: Single radiographic view of the chest. COMPARISON: Chest x-ray of March 07, 2023. FINDINGS: LUNGS/PLEURA: No focal consolidation or pneumothorax. No pleural effusion. HEART/MEDIASTINUM: Cardiac silhouette is within normal limits There is atherosclerosis of the aorta. remaining mediastinal silhouettes are unremarkable. HARDWARE/LINES/TUBES: None. BONES: No acute findings. IMPRESSION: No acute cardiopulmonary abnormality. THIS IS AN ELECTRONICALLY VERIFIED FINAL REPORT 10/05/2024 12:53 AM - Electronically signed by Aileen Holguin M.D. SN T: Report ID: [id number] Reading Location: [place] [address] Procedure Note Aileen Holguin MD - 10/05/2024 EXAM DESCRIPTION: XR CHEST 1 VIEW REASON FOR STUDY: chest pain Pt came in ED, ambulatory with c/o Elevated BP with SBP reading 180's athome. Pt reports she hasn't been feeling well for the last couple of days,states like feeling of indigestion . Pt denies CP, SOB, fever, chills, N/V/D. Pt refuse to take off bra. TECHNIQUE: Single radiographic view of the chest. COMPARISON: Chest x-ray of March 07, 2023. FINDINGS: LUNGS/PLEURA: No focal consolidation or pneumothorax. Nopleural effusion. HEART/MEDIASTINUM: Cardiac silhouette is within normal limits There is atherosclerosis of the aorta. remaining mediastinal silhouettes are unremarkable. HARDWARE/LINES/TUBES: None. BONES: No acute findings. IMPRESSION: No acute cardiopulmonary abnormality. THIS IS AN ELECTRONICALLY VERIFIED FINAL REPORT 10/05/2024 12:53 AM - Electronically signed by Aileen Holguin M.D. SN T: Report ID: [id number] Reading Location: [place] [address] us Aileen Resendiz MD IMG XR PROCEDURES Chuyita l Result * ECG 12 lead (10/05/2024 12:17 AM CDT) Ventricular Rate EKG/Min 74 BPM [facility] Atrial Rate 74 BPM [facility] TN-Interval (MSEC) 138 ms [facility] QRS-Interval (MSEC) 76 ms [facility] QT-Interval (MSEC) 386 ms [facility] QTc 428 ms [facility] P [place] 79 degrees [facility] R [place] 69 degrees [facility] T [place] 70 degrees [facility] Diagnosis Normal sinus rhythm Normal ECG When compared with ECG of 06-JUL-2023 12:06, No significant change was found Confirmed by KARINA EMERSON M.D. ([id number]) on 10/06/2024 4:52:42 PM [facility] 10/05/2024 12:1 7 AM CDT 10/06/2024 4:52 PM CDT us Aileen Resendiz MD ECG ORDERABLES Final Result Performing Organization Address [id number]|2024-10-22 11:28:00|2024-10-22 11:27:00|XMS_ITS|BKG DAEMON|External Medical Summaries|[id number]|" Referral Summary Created on: October 22, 2024 Natalie Siu : 1955 Sex: Female Author Organization [facility] Address [address] [place] [address] Care Team Providers Care Progressive Care Unit Registered Nurse Name Role Phone Neil Mina DO Primary Care Provider + Neil Mina DO Unavailable [phone] Encounters Date Type Department Care Team Description 10/05/2024 2:29 AM CDT - 10/05/2024 6:06 AM CDT Emergency [address] [address] Aileen Resendiz MD Chest pain, unspecified type (Primary Dx); Hypertensive urgency; Elevated serum creatinine Discharge Disposition: Discharge to home or self care 09/05/2024 10:33 AM CDT - 09/05/2024 11:59 PM CDT Hospital Encounter [address] [address] Cyst of kidney, acquired Discharge Disposition: Discharge to home or self care 08/15/2024 ACO Quality [facility] Accountable Care Organization [address] [place] [id number] Nicole Francis 08/08/2024 9:45 AM CYTOLOGIST Office Visit [facility] Pulmonology [address] [place] [phone] Eliezer Lemon MD Dyspnea on exertion (Primary Dx); Chronic obstructive pulmonary disease, unspecified COPD type (HCC); Nicotine dependence, cigarettes, in remission from Last 3 Months Allergies Active Allergy Reactions Criticality Noted Date Comments Amoxicillin Shortness of breath,Anaphylaxis High 06/09/2017 difficulty breathing Anaphylaxis Tramadol Nausea only Low 06/09/2017 severe nausea Tramadol Hcl Nausea & Vomiting Low 10/26/2018 nausea and vomiting Medications amLODIPine (NORVASC) 5 mg tablet TAKE 1 TABLET (5 MG TOTAL) BY MOUTH DAILY 90 tablet 1 3 Active levothyroxine (SYNTHROID) 50 mcg tablet TAKE 1 TABLET (50 MCG TOTAL) BY MOUTH MASONRY INSPECTOR BEFORE BREAKFAST 90 tablet 1 3 Active losartan (COZAAR) 100 mg tablet TAKE 1 TABLET (100 MG TOTAL) BY MOUTH DAILY 90 tablet 3 3 Active rosuvastatin (CRESTOR) 20 mg tablet TAKE 1 TABLET (20 MG TOTAL) BY MOUTH DAILY 90 tablet 1 3 Active fluticasone-ume clidin-vilanter (TRELEGY ELLIPTA) 100-62.5-25 mcg inhalerIndicati ons:Bronchospas m Prevention with COPD Inhale 1 puff daily 3 each 11 5 11/07/19 25 Active Active Problems Problem Noted Date Diagnosed Date Chest tightness 06/15/2023 Encounter for Medicare annual wellness exam 10/06 Assessment & Plan (11/03/2022 8:36 AM CDT): meds reviewed and reconciled History of right hip replacement 12/27/2017 Chronic obstructive pulmonary disease 10/20/2017 Overview (12/01/2018): Based on PFT data patient has moderate COPD. patient's sister has asthma. Symptoms progress with cold air exposure. Asthma COPD overlap syndrome would be in the differential Assessment & Plan (05/16/2023 9:18 AM CYTOLOGIST): Stable On trelegy Assessment & Plan (11/03/2022 8:37 AM CDT): Doing ok Assessment & Plan (01/06/2022 1:45 PM CDT): Moderate copd Staying inside Taking it easy Assessment & Plan (03/24/2021 7:46 AM CDT): Patient is well controlled. Continue current treatment. Dr. Lemon note reviewed Assessment & Plan (03/18/2020 7:53 AM CDT): Patient is well controlled. Continue current treatment. Dyslipidemia 04/19/2017 Assessment & Plan (05/16/2023 9:18 AM CYTOLOGIST): Patient is well controlled. Continue current treatment. Assessment & Plan (11/03/2022 8:39 AM CDT): lipid and lft Assessment & Plan (03/18/2020 7:53 AM CDT): Patient is well controlled. Continue current treatment. Check lab HTN (hypertension) 04/19/2017 Assessment & Plan (05/16/2023 9:18 AM CYTOLOGIST): Patient is well controlled. Continue current treatment. Assessment & Plan (11/03/2022 8:38 AM CDT): Patient is well controlled. Continue current treatment. Assessment & Plan (01/06/2022 1:45 PM CDT): Patient is well controlled. Continue current treatment. Assessment & Plan (03/24/2021 7:44 AM CDT): Patient is well controlled. Continue current treatment. Assessment & Plan (03/18/2020 7:52 AM CDT): Patient is well controlled. Continue current treatment. Assessment & Plan (12/01/2018 7:52 AM CDT): Patient is well controlled. Continue current treatment. Hypothyroidism 03/22/2016 Assessment & Plan (05/16/2023 9:19 AM CYTOLOGIST): Patient is well controlled. Continue current treatment. Assessment & Plan (11/03/2022 8:38 AM CDT): tsh and free t4 Assessment & Plan (01/06/2022 1:46 PM CDT): Cont levothyroxine Assessment & Plan (03/18/2020 7:52 AM CDT): lab Assessment & Plan (12/01/2018 7:52 AM CDT): Will obtain recent labs Osteoarthritis 03/22/2016 Resolved Problems Problem Noted Date Diagnosed Date Resolved Date Tension headache 09/23/2021 11/03/2022 Assessment & Plan (03/29/2022 12:52 PM CDT): Neurologically intact. Starts with neck spasms/tension and moves up scalp. Can continue tizanidine QHS/PRN. Offered kenalog 40 mg IM in glute today but patient wants to think about it - can schedule as nurse visit if she decides to get. Refer to pain management for possible trigger point injections. She's also considering care information associate. Return if headaches change in character, worsen, or become more frequent. Assessment & Plan (01/06/2022 1:48 PM CDT): Could not tolerate the flexeril meloxicam not helping Add tizanidine 4 mg tid prn X ray c spine Assessment & Plan (10/23/2021 11:17 AM CDT): Improving but still having a lot of upper neck tension. Massage helped but is expensive. Will try PT. Continue meloxicam and flexeril PRN. Assessment & Plan (09/23/2021 11:31 AM CDT): Suspect due to neck tension/muscle spasms. Start meloxicam and flexeril PRN. Heating pad to help soothe muscles. Gentle stretching advised. Acute right-sided thoracic back pain 07/06/2021 11/03/2022 Assessment & Plan (07/06/2021 10:50 AM CYTOLOGIST): Tender right thoracic musculature. Tylenol No. 3 1 q.8 p.r.n. UTI (urinary tract infection) 03/24/2021 11/03/2022 Assessment & Plan (03/24/2021 7:44 AM CDT): Check a ua cipro 500 mg bid 1 week Impacted cerumen of right ear 11/18/2020 03/24/2021 Hip pain 12/01/2018 11/03/2022 Annual physical exam 12/01/2018 023 Assessment & Plan (09/16/2020 7:41 AM CDT): Bone density Lab Aftercare following joint replacement surgery 04/14/20 17 03/24/2021 Female climacteric state 10/15/2016 Immunizations Immunization Administration Dates Next Due Influenza, Quad, Adjuvantate d, Intramuscular 03/13/2022 Influenza, Quadrivalent, Hig h Dose, Preservative Free, Intrr 03/24/2021 Influenza, Quadrivalent, Rec ombinant, Egg Free, Preservative Free, Intramuscular 03/18/2020 Influenza, Trivalent, IM (MDV) 04/19/2014,2012 Influenza, Trivalent, Preser vative Free, Intramuscular 04/19/2015 Influenza, Unspecified 03/14/2023(Deferred: Chel ent Refused) Pneumococcal Conjugate PCV 13 03/24/2021 Pneumococcal Polysaccharide PPV23 03/18/2020 ZOSTER LIVE 04/09/2013 ZOSTER Recombinant 08/06/2022,04/16/2022 Social History Tobacco Use Types Packs/Day Years Used Date Smoking Tobacco: Former Cigarettes 0.8 24 1 981 - 2005 Smokeless Tobacco: Never Tobacco Cessation:Counseling Given: Not Answered Alcohol Use Standard Drinks/Week Comments Yes 0 (1 standard drink = 0.6 oz pur e alcohol) AUDIT-C Answer Date Recorded Q1: How often do you have a drink containing alc ohol? 2-3 times a week 05/16/2023 Q2: How many drinks containi ng alcohol do you have on a typical day when you are drinking? 1 or 2 05/16/2023 Q3: How often do you have si x or more drinks on one occasion? Never 05/16/2023 PHQ-2 Answer Date Recorded PHQ-2 Total Score (If total score is 3 or more points, staff should administer the PHQ-9) 0 03/14/2023 Personal Safety Answer Date Recorded Have you ever been in or are you currently in a harmful physical or emotional relationship or is someone making you feel afraid or unsafe? Denies 10/05/2024 Comments No Sex and Gender Information Value Date Recorded Sex Assigned at Not on file Legal Sex Female 2:29 AM CYTOLOGIST Gender Identity Female 03/18/2020 5:41 AM CDT Sexual Orientation Straight 03/18/2020 5: 42 AM CDT Last Filed Vital Signs Vital Sign Reading Time Taken Comments Blood Pressure 133/70 10/05/2024 5:30 AM CDT Pulse 90 10/05/2024 5:30 AM CDT Temperature 36.3 C (97.3 F) 10/04/2024 11:55 PM CDT Respiratory Rate 19 10/05/2024 5:30 AM CDT Oxygen Saturation 98% 10/05/2024 5:30 AM CDT Inhaled Oxygen Concentration - - Weight 45.4 kg (100 lb) 10/04/2024 11:55 PM CDT Height 154.9 cm (5' 1 ) 10/04/2024 11:55 PM CDT Body Mass Index 18.89 10/04/2024 11:55 PM CDT Plan of Treatment Not on file Procedures Procedure Name Priority Date/Time Associated Diagnosis Comments TROPONIN T HIGH-SENSITIVITY 4-HR Timed 10/05/2024 4:43 AM CDT URINALYSIS AND REFLEX TO MICROSCOPIC AND CULTURE STAT 10/05/2024 3:23 AM CDT INFLUENZA A/B, RSV, AND COVID-19 PCR STAT 10/05/2024 3:23 AM CDT TROPONIN T HIGH-SENSITIVITY 2-HOUR Timed 10/05/2024 2:41 AM CDT EGFR STAT 10/05/2024 12:31 AM CDT DIFFERENTIAL AUTO STAT 10/05/2024 12: 31 AM CDT TROPONIN T HIGH-SENSITIVITY SERIES (BASELINE, 2HR, 4HR, 6HR) STAT 10/05/2024 12:31 AM CDT COMPREHENSIVE METABOLIC PANEL STAT 10/05/2024 12:31 AM CDT CBC WITH AUTO DIFFERENTIAL STAT 10/05/2024 12:31 AM CDT XR CHEST 1 VIEW ED 10/05/2024 12:24 AM CDT ECG 12-LEAD STAT 10/05/2024 12:17 AM CDT US KIDNEY COMPLETE Schedule Routine, Read Routine (OP Routine) 09/05/2024 11:12 AM CDT Cyst of kidney, acquired DEXA AXIAL SKELETON BONE DENSITY 1 OR MORE SITES Schedule Routine, Read Routine (OP Routine) 02/28/2024 8:37 AM CDT Encounter for screening for osteoporosis SCREENING MAMMOGRAM BILATERAL W AMADO Schedule Routine, Read Routine (OP Routine) 10/14/2023 2:14 PM CDT Screening mammogram, encounter for HEPATITIS C ANTIBODY Routine 03/13/2021 7:13 AM CDT Annual physical exam Essential hypertension COLONOSCOPY Routine 12/15/2015 from Last 3 Months or Most Recently Relevant to Health Maintenance Results * Troponin T high-sensitivity 4-hour (10/05/2024 4:43 AM CDT) Trop T hs 6 <=14 ng/L Comment: Interpretive Data For further hscTnT resources including the diagnostic algorithm and an aid in interpretation, copy and paste this link: https://nrl.testcatalog.org/show/hsTrop Current Interpretive Data last revised 2020. Trop T hs delta -2 ng/L MONY GONSALEZ Trop T hs interp Insignificant MONY GONSALEZ Blood 10/05/2024 4:43 AM CDT 10/05/2024 4:45 AM CDT Aileen Resendiz MD LAB BLOOD ORDERABLES F inal Result Performing Organization Address [facility] Co de Phone Number [facility] [address] [place] [address] * Influenza A/B, RSV, and COVID-19 PCR Nasopharyngeal (10/05/2024 3:23 AM CDT) Pathologist [facility] COVID-19 RNA Negative Negative Influenza A RNA Negative Negative [facility] Influenza B RNA Negative Negative [facility] RSV RNA Negative Negative [facility] Comment: Interpretive data: Testing performed by [facility]. This test is performed using the [employer] Xpert Xpress CoV-2/Flu/RSV plus assay. This is a multiplex, real-time reverse transcriptase PCR assay intended for the qualitative detection of nucleic acid from SARS-CoV-2, influenza A, influenza B, and respiratory syncytial virus. This assay has been cleared by the [place] Food and Drug administration. The performance characteristics have been verified by the [facility]. Results must be considered in the clinical context, and a negative result does not rule out infection. Interpretive Data last revised 2023 Nasopharyngeal 10/05/2024 3: 23 AM CDT 10/05/2024 3:27 AM CDT Narrative [facility] - 10/05/2024 4:11 AM CDT Is the Patient experiencing symptoms consistent with COVID?->Yes Aileen Resendiz MD LAB MICROBIOLOGY - GEN ERAL ORDERABLES Final Result Performing Organization Address [facility] de Phone Number [place] [id number] [place] [address] * Urinalysis reflex to microscopic and culture Urine (10/05/2024 3:23 AM CDT) Color, ur Straw Yellow Clarity, ur Clear Clear [facility] Specific gravity, ur 1.004 1.003 - 1.030 [facility] pH, urine 7.0 [facility] Comment: Interpretive Data U rine pH is affected by diet, medications, systemic acid-base disturbances, and renal tubular function. pH may affect urinary stone formation. For example, urine pH below 6.0 may help reduce the tendency for calcium phosphate stones and pH greater than 6.0 may reduce the tendency for uric acid stone formation. Source: [facility] Current Interpretive Data was last revised on 2017 Protein, ur ql Negative Negative [facility] Glucose, ur ql Negative Negative [facility] Ketones, ur Negative Negative [facility] Bilirubin, ur Negative Negative [facility] Blood, ur Negative Negative [facility] Urobilinogen, ur <2.0 <2.0 mg/dL [facility] Nitrite, ur Negative Negative [facility] Leukocyte esterase, ur Negative Negative [facility] UA reflex comment Reflex conditions for microscopic UA and culture not met. [facility] Urine 10/05/2024 3:23 AM CDT 10/05/2024 3:26 AM CDT us Aileen Resendiz MD LAB MICROBIOLOGY - GEN ERAL ORDERABLES Final Result Performing Organization Address [facility] Co de Phone Number [address] [address] * Troponin T high-sensitivity 2-hour (10/05/2024 2:41 AM CDT) Trop T hs 7 <=14 ng/L Comment: Interpretive Data For further hscTnT resources including the diagnostic algorithm and an aid in interpretation, copy and paste this link: https://nrl.testcatalog.org/show/hsTrop Current Interpretive Data last revised 2020. Trop T hs delta -1 ng/L [facility] Trop T hs interp Insignificant [facility] Blood 10/05/2024 2:41 AM CDT 10/05/2024 2:46 AM CDT us Aileen Resendiz MD LAB BLOOD ORDERABLES F inal Result Performing Organization Address [facility]/ZIP Co de Phone Number [address] [address] * Troponin T high-sensitivity series (baseline, 2hr, 4hr, 6hr) (10/05/2024 12:31 AM CDT) Trop T hs 8 <=14 ng/L Comment: Interpretive Data For further hscTnT resources including the diagnostic algorithm and an aid in interpretation, copy and paste this link: https://nrl.testcatalog.org/show/hsTrop Current Interpretive Data last revised 2020. Blood 10/05/2024 12:3 1 AM CDT 10/05/2024 12:35 AM CDT us Aileen Resendiz MD LAB BLOOD ORDERABLES F inal Result Performing Organization Address [facility] Co de Phone Number [address] [place] [address] * (ABNORMAL) eGFR (10/05/2024 12:31 AM CDT) Pathologist [facility] eGFR 53(L) >=60 mL/min/1. 73 m2 Comment: Interpretive Data Reference Interval Normal >/= 90 mL/min/1.73m2 Mildly decreased* 60 - 89 mL/min/1.73m2 Mildly to moderately decreased 45 - 59 mL/min/1.73m2 Moderately to severely decreased 30 - 44 mL/min/1.73m2 Severely decreased 15 - 29 mL/min/1.73m2 Kidney Failure < 15 mL/min/1.73m2 *Relative to young adult level Estimated glomerular filtration rate is determined by the 2020 CKD-EPI equation recommended by the National Kidney Foundation (A Unifying Approach to GFR Estimation: Recommendations of the NKF-ASK Task Force on Reassessing the Inclusion of Race in Diagnosing Kidney Disease, JASN 2020). The CKD-EPI equation should not be used for patients with unstable renal function and has not been validated in children and those over 70. Current interpretive data was last reviewed 2021. Blood 10/05/2024 12:3 1 AM CDT 10/05/2024 12:35 AM CDT Aileen Resendiz MD LAB BLOOD ORDERABLES F inal Result Performing Organization Address City/[facility]/ZIP Co de Phone Number MONY [address] Department [place] [address] * Differential, auto (10/05/2024 12:31 AM CDT) Pathologist [facility] Neutrophil abs 3.44 1.50 - 6.50 K/cumm Imm gran abs 0.09 0.00 - 0.10 K/cumm [facility] Lymphocyte abs 2.31 0.80 - 3.30 K/cumm [facility] Monocyte abs 0.71 0.20 - 0.80 K/cumm [facility] Eosinophil abs 0.26 0.00 - 0.50 K/cumm [facility] Basophil abs 0.06 0.00 - 0.10 K/cumm [facility] Neutrophil pct 50.1 % [facility] Comment: Interpretive Data Percent cell count reference ranges are not reported, since discordance with absolute values may lead to misinterpretation of CBC data. Current Interpretive Data was last revised on 2017. Imm gran pct 1.3 % [facility] Comment: Interpretive Data Percent cell count reference ranges are not reported, since discordance with absolute values may lead to misinterpretation of CBC data. Current Interpretive Data was last revised on 2017. Lymphocyte pct 33.6 % [facility] Comment: Interpretive Data Percent cell count reference ranges are not reported, since discordance with absolute values may lead to misinterpretation of CBC data. Current Interpretive Data was last revised on 2017. Monocyte pct 10.3 % [facility] Comment: Interpretive Data Percent cell count reference ranges are not reported, since discordance with absolute values may lead to misinterpretation of CBC data. Current Interpretive Data was last revised on 2017. Eosinophil pct 3.8 % [facility] Comment: Interpretive Data Percent cell count reference ranges are not reported, since discordance with absolute values may lead to misinterpretation of CBC data. Current Interpretive Data was last revised on 2017. Basophil pct 0.9 % [facility] Comment: Interpretive Data Percent cell count reference ranges are not reported, since discordance with absolute values may lead to misinterpretation of CBC data. Current Interpretive Data was last revised on 2017. Blood 10/05/2024 12:3 1 AM CDT 10/05/2024 12:35 AM CDT Aileen Resendiz MD LAB BLOOD ORDERABLES F inal Result Performing Organization Address City/[facility] Co de Phone Number MONY [address] [facility] [place] [address] * (ABNORMAL) CBC with auto differential (10/05/2024 12:31 AM CDT) [facility] WBC 6.87 3.80 - 9.90 K/cumm Hgb 13.1 11.9 - 15.5 g/dL [facility] Hct 41.1 35.6 - 45.5 % [facility] Plt 202 150 - 400 K/cumm [facility] MPV 10.7 9.1 - 12.3 fL [facility] RBC 4.77 3.90 - 5.20 M/cumm [facility] MCV 86.2 81.3 - 96.4 fL [facility] MCH 27.5 27.1 - 33.3 pg [facility] MCHC 31.9(L) 32.3 - 35.7 g/dL [facility] RDW CV 13.4 11.1 - 14.9 % [facility] RDW SD 41.9 35.7 - 48.1 fL [facility] NRBC abs 0.00 0.00 - 0.01 K/cumm [facility] Blood Venous blood specimen / Unknown 10/05/2024 12:31 AM CDT 10/05/2024 12:35 AM CDT us Aileen Resendiz MD LAB BLOOD ORDERABLES F inal Result Performing Organization Address City/[facility]/ZIP Co de Phone Number MONY [address] [place] [address] * (ABNORMAL) Comprehensive metabolic panel (10/05/2024 12:31 AM CDT) [facility] Sodium 138 135 - 145 mmol/L Potassium, pl 4.9 3.3 - 4.9 mmol/L [facility] Chloride 105 97 - 110 mmol/L [facility] CO2 23 22 - 32 mmol/L [facility] Anion gap 10 2 - 15 mmol/L [facility] BUN 22 6 - 25 mg/dL [facility] Creatinine 1.12(H) 0.60 - 1.10 mg/dL [facility] Glucose 106 70 - 199 mg/dL [facility] Comment: Interpretive Data Fasting glucose >/= 126 mg/dl is diagnostic for diabetes. Fasting is defined as no caloric intake for at least 8 hours. Fasting glucose between 100 mg/dl to 125 mg/dl is diagnostic of prediabetes. In a patient with classic symptoms of hyperglycemia or hyperglycemic crisis, a random glucose >/= 200 mg/dl is diagnostic for diabetes. In the absence of unequivocal hyperglycemia, results should be confirmed by repeat testing. The classification and Diagnosis of Diabetes Diabetes Care 2021; 46: S19-S40. Current interpretive data was last revised 2022. Calcium 9.8 8.5 - 10.3 mg/dL [facility] Bilirubin, total 0.6 0.1 - 1.2 mg/dL [facility] Protein, pl 6.4(L) 6.5 - 8.5 g/dL [facility] Albumin 4.0 3.5 - 5.0 g/dL [facility] Alk phos 54 40 - 130 Units/L [facility] ALT 18 7 - 45 Units/L [facility] AST 22 10 - 45 Units/L [facility] Blood 10/05/2024 12:3 1 AM CDT 10/05/2024 12:35 AM CDT Aileen Resendiz MD LAB BLOOD ORDERABLES F inal Result [facility] [address] Department [place] [address] * XR Chest 1 Vw Portable (if patient condition/safety warrant portable) (10/05/2024 12:24 AM CDT) Anatomical Region Laterality Modality Body, Chest N/A Computed Radiogr aphy 10/05/2024 12:5 2 AM CDT Narrative 10/05/2024 12:53 AM CDT EXAM DESCRIPTION: XR CHEST 1 VIEW REASON FOR STUDY: chest pain Pt came in ED, ambulatory with c/o Elevated BP with SBP reading 180's at home. Pt reports she hasn't been feeling well for the last couple of days, states like feeling of indigestion . Pt denies CP, SOB, fever, chills, N/V/D. Pt refuse to take off bra. TECHNIQUE: Single radiographic view of the chest. COMPARISON: Chest x-ray of March 07, 2023. FINDINGS: LUNGS/PLEURA: No focal consolidation or pneumothorax. No pleural effusion. HEART/MEDIASTINUM: Cardiac silhouette is within normal limits There is atherosclerosis of the aorta. remaining mediastinal silhouettes are unremarkable. HARDWARE/LINES/TUBES: None. BONES: No acute findings. IMPRESSION: No acute cardiopulmonary abnormality. THIS IS AN ELECTRONICALLY VERIFIED FINAL REPORT 10/05/2024 12:53 AM - Electronically signed by Aileen Holguin M.D. SN T: Report ID: [id number] Reading Location: [id number] Procedure Note Aileen Holguin MD - 10/05/2024 EXAM DESCRIPTION: XR CHEST 1 VIEW REASON FOR STUDY: chest pain Pt came in ED, ambulatory with c/o Elevated BP with SBP reading 180's athome. Pt reports she hasn't been feeling well for the last couple of days,states like feeling of indigestion . Pt denies CP, SOB, fever, chills, N/V/D. Pt refuse to take off bra. TECHNIQUE: Single radiographic view of the chest. COMPARISON: Chest x-ray of March 07, 2023. FINDINGS: LUNGS/PLEURA: No focal consolidation or pneumothorax. Nopleural effusion. HEART/MEDIASTINUM: Cardiac silhouette is within normal limits There is atherosclerosis of the aorta. remaining mediastinal silhouettes are unremarkable. HARDWARE/LINES/TUBES: None. BONES: No acute findings. IMPRESSION: No acute cardiopulmonary abnormality. THIS IS AN ELECTRONICALLY VERIFIED FINAL REPORT 10/05/2024 12:53 AM - Electronically signed by Aileen Holguin M.D. SN T: Report ID: [id number] Reading Location: [id number] Aileen Resendiz MD IMG XR PROCEDURES Chuyita l Result * ECG 12 lead (10/05/2024 12:17 AM CDT) Ventricular Rate EKG/Min 74 BPM [facility] Atrial Rate 74 BPM [facility] TN-Interval (MSEC) 138 ms [facility] QRS-Interval (MSEC) 76 ms [facility] QT-Interval (MSEC) 386 ms [facility] QTc 428 ms [facility] P [place] 79 degrees [facility] R [place] 69 degrees [facility] T [place] 70 degrees [facility] Diagnosis Normal sinus rhythm Normal ECG When compared with ECG of 06-JUL-2023 12:06, No significant change was found Confirmed by KARINA EMERSON M.D. ([id number]) on 10/06/2024 4:52:42 PM [facility] 10/05/2024 12:1 7 AM CDT 10/06/2024 4:52 PM CDT Aileen Resendiz MD ECG ORDERABLES Final Result [facility] * US Kidney Complete (09/05/2024 11:12 AM CDT) Anatomical Region Laterality Modality Kidney N/A Ultrasound 09/13/2024 7:57 PM CDT Narrative 09/13/2024 8:01 PM CDT EXAM DESCRIPTION: US KIDNEY COMPLETE REASON FOR STUDY: CYST OF KIDNEY TECHNIQUE: Ultrasound of the kidneys and urinary bladder was performed with grayscale imaging. COMPARISON: CT dated 08/10/2016 FINDINGS: Right Kidney: Obscured. Grossly normal in size and measures 9.2 cm. Increased echogenicity. No definite evidence of hydronephrosis. Multiple anechoic lesions are seen. The largest is measured as 2.6 x 2.8 x 2.5 cm. There is no flow on color Doppler. Left Kidney: Normal in size and measures 10.1 cm. Normal echogenicity. No hydronephrosis. A dilated left ureter is seen approximately measuring 1.2 cm. Bladder: Partially distended. Bilateral ureteral jets are documented. IMPRESSION: 1. Indeterminate dilated visualized proximal left ureter. No gross hydronephrosis. A follow-up CT may be performed to evaluate for a possible underlying obstructing lesion. 2. Partially obscured right kidney with increased echogenicity as evidence for chronic parenchymal disease. Multiple anechoic lesions are seen as evidence for cysts measuring up to 2.8 cm. Recommend close attention on follow-up. THIS IS AN ELECTRONICALLY VERIFIED FINAL REPORT 09/13/2024 8:01 PM - Electronically signed by Hans Howell M.D. AG T: Report ID: [id number] Reading Location: [id number] Procedure Note Hans Howell MD - 09/13/2024 EXAM DESCRIPTION: US KIDNEY COMPLETE REASON FOR STUDY: CYST OF KIDNEY TECHNIQUE: Ultrasound of the kidneys and urinary bladder was performedwith grayscale imaging. COMPARISON: CT dated 08/10/2016 FINDINGS: Right Kidney: Obscured. Grossly normal in size and measures 9.2cm. Increased echogenicity. No definite evidence of hydronephrosis.Multiple anechoic lesions are seen. The largest is measured as 2.6 x 2.8 x 2.5 cm. There is no flow on color Doppler. Left Kidney: Normal in size and measures 10.1 cm. Normal echogenicity.No hydronephrosis. A dilated left ureter is seen approximately measuring 1.2cm. Bladder: Partially distended. Bilateral ureteral jets are documented. IMPRESSION: 1. Indeterminate dilated visualized proximal left ureter. No gross hydronephrosis. A follow-up CT may be performed to evaluate for apossible underlying obstructing lesion. 2. Partially obscured right kidney with increased echogenicity asevidence for chronic parenchymal disease. Multiple anechoic lesions are seen as evidence for cysts measuring up to 2.8 cm. Recommend close attention on follow-up. THIS IS AN ELECTRONICALLY VERIFIED FINAL REPORT 09/13/2024 8:01 PM - Electronically signed by Hans Howell M.D. AG T: Report ID: [id number] Reading Location: [id number] us Neil Mina DO IMG US PROCEDURES Final Result * Dexa Axial Skeleton Bone Density 1 or 2 Site (02/28/2024 8:37 AM CDT) Anatomical Region Laterality Modality Body N/A Mammography Specimen (Source) [facility]
--- OUTSIDE RECORDS SUMMARY | 2024-10-22 11:28 | XMS_ITS | Encounter Summary ---
Author Organization [facility] Care Team Providers Care Rehabilitation Program Manager Name Role Phone Neil Mina DO Primary Care Provider + Neil Mina DO Unavailable [phone] Encounter Details Date Type Department Care Team (Latest Contact Info) Description 03/29/2016 Orders Only MMG CLINCONV ProviderAntwan MD [address] [place] [address] Social History Tobacco Use Types Packs/Day Years Used Date Smoking Tobacco: Never Assessed Comments Unknown Sex and Gender Information Value Date Recorded Sex Assigned at Not on file Legal Sex Female 2:29 AM SHIFT LEADER Gender Identity Female 03/18/2020 5:41 AM CDT Sexual Orientation Straight 03/18/2020 5: 42 AM CDT documented as of this encounter Plan of Treatment Not on file documented as of this encounter Procedures Procedure Name Priority Date/Time Associated Diagnosis Comments PROCEDURE - RESULT 03/24/2016 12 :00 AM CDT documented in this encounter Results * PROCEDURE - RESULT (03/24/2016 12:00 AM CDT) Narrative 03/24/2016 12:00 AM CDT Ordered by an unspecified provider. Historical Provider Final Res ult documented in this encounter Visit Diagnoses Not on filedocumented in this encounter Additional Health Concerns Infection Onset Date Last Indicated Resolved Time COVID: Suspected 10/05/2024 10/05/202410/05/2024 4:12 AM CDT documented as of this encounter Care Teams Rehabilitation Program Manager Relationship Specialty Start Date End Date Neil Mina DO PCP - General Family Medicine 06/06/18 Neil Mina DO PCP - Rolo Attributed PCP 04/06/19 documented as of this encounter
--- OUTSIDE RECORDS SUMMARY | 2024-10-22 11:28 | XMS_ITS | Encounter Summary ---
Author Organization [employer] Address [address] [place] [address] Care Team Providers Care Certified Surgical Assistant Name Role Phone Torres Waters MD Primary Care Provider Encounter Details Date Type Department Care Team (Late st Contact Info) Description 03/20/2007 Outpatient Historical HIS MAMM VAN Other Screening Mammogram (Primary Dx) Social History Tobacco Use Types Packs/Day Years Used Date Smoking Tobacco: Never Assessed Comments Unknown Sex and Gender Information Value Date Recorded Sex Assigned at Not on file Legal Sex Female 3:29 AM MED SPECIALIST Gender Identity Not on file Sexual Orientation Not on file documented as of this encounter Plan of Treatment Not on file documented as of this encounter Visit Diagnoses Diagnosis Other screening mammogram- Primary documented in this encounter Care Teams Certified Surgical Assistant Relationship Specialty [place] [id number] [id number] PCP - General 03/09/02 documented as of this encounter
--- OUTSIDE RECORDS SUMMARY | 2024-10-22 11:28 | XMS_ITS | Encounter Summary ---
Author Organization [employer] [facility] Address 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
--- OUTSIDE RECORDS SUMMARY | 2024-10-22 11:28 | XMS_ITS | Clinical Summary ---
Author Organization [facility] Address [address] [place] [address] Phone Care Team Providers Care Metal Ceiling Builder Name Role Phone Torres Waters MD Primary Care Provider [phone] Social History Tobacco Use Types Packs/Day Years Used Date Smoking Tobacco: Never Assessed Comments Unknown Sex and Gender Information Value Date Recorded Sex Assigned at Not on file Legal Sex Female 3:29 AM BARREL LATHE OPERATOR OUTSIDE Gender Identity Not on file Sexual Orientation Not on file Plan of Treatment Health Maintenance Due Date Last Done Comments DTAP/TDAP/TD VACCINES (1 - Tdap) 1974 COLORECTAL SCREENING 02/21/2000 Colorectal Cancer Screening 02/21/2000 FIT-DNA Q 3 years 02/21/2000 FIT/FOBT Q 1 year 02/21/2000 Flex Sig/CT Colonography Q 5 years 02/21/2000 PNEUMOCOCCAL VACCINE 50+ YEA RS (1 of 1 - PCV) 2005 ZOSTER VACCINE (1 of 2) 2005 BREAST CANCER SCREENING 03/24/2011 03/24/2010, 03/25 OSTEOPOROSIS SCREENING 02/21/2020 INFLUENZA VACCINE (#1) 2024 RSV VACCINE (60+ or ) (1 - 1-dose 75+ series) 2030 Procedures Procedure Name Priority Date/Time Associated Diagnosis Comments MAMMO SCREEN BILAT W OR WO CAD Routine 03/24/2010 4:34 PM CDT Other screening mammogram from Last 3 Months or Most Recently Relevant to Health Maintenance Results * MAMMO DIGITAL SCREEN BILAT (03/24/2010 4:34 PM CDT) Anatomical Region Laterality Modality Breast Bilateral Mammography Narrative 03/26/2010 3:33 PM CDT EXAM: FULL-FIELD DIGITAL BILATERAL SCREENING MAMMOGRAPHY WITH CAD, 03/24/2010 CLINICAL INFORMATION: Screening. COMPARISON: 03/25/2008 and 03/20/2007. INTERPRETATION: Bilateral craniocaudal and mediolateral oblique full-field digital projections obtained. The breast parenchyma is heterogeneously dense which decreases the sensitivity of mammography. There are no suspicious microcalcifications, focal dominant masses, or areas of architectural distortion. No evidence of malignancy. No change from the prior. This examination was reviewed with CAD. CONCLUSION: Dense breast parenchyma without evidence of malignancy. No change from the prior. RECOMMENDATION: Screening mammography in one year. BI-RADS CATEGORY 1: Negative. Procedure Note Mila Alston MD - 03/26/2010 EXAM: FULL-FIELD DIGITAL BILATERAL SCREENING MAMMOGRAPHY WITH CAD,03/24/2010 CLINICAL INFORMATION: Screening. COMPARISON: 03/25/2008 and 03/20/2007. INTERPRETATION: Bilateral craniocaudal and mediolateral obliquefull-field digital projections obtained. The breast parenchyma isheterogeneously dense which decreases the sensitivity of mammography.There are no suspicious microcalcifications, focal dominant masses, orareas of architectural distortion. No evidence of malignancy. No changefrom the prior. This examination was reviewed with CAD. CONCLUSION: Dense breast parenchyma without evidence of malignancy. Nochange from the prior. RECOMMENDATION: Screening mammography in one year. BI-RADS CATEGORY 1: Negative. External Provider [facility] MAMMO ORDERABLES Final R esult from Last 3 Months or Most Recently Relevant to Health Maintenance Insurance Care Teams Metal Ceiling Builder Relationship Specialty [place] [address] [address] PCP - General 03/09/02
--- OUTSIDE RECORDS SUMMARY | 2024-10-22 11:28 | XMS_ITS | Clinical Summary ---
Author Organization [facility] Address [address] [place] [address] Care Team Providers Care Draw End Hand Name Role Phone Unavailable Primary Care Provider Unavailabl e Social History Tobacco Use Types Packs/Day Years Used Date Smoking Tobacco: Never Assessed Comments Unknown Sex and Gender Information Value Date Recorded Sex Assigned at Not on file Legal Sex Female 4:57 PM CDT Gender Identity Not on file Sexual Orientation Not on file Plan of Treatment Health Maintenance Due Date Last Done Comments Colorectal Cancer Screening Colonoscopy (10 Years) 1955 Hepatitis C 1973 DTaP, Tdap and Td Vaccines ( 1 - Tdap) 1974 Mammogram Screening 1995 Pneumococcal Vaccine: 50+ Ye ars (1 of 1 - PCV) 2005 Zoster Vaccines (1 of 2) 2005 Dexa Scan (General) 02/21/2020 COVID-19 Vaccine ( - 2023-2 5 season) 2024 RSV Immunization or 60+ Years (1 - 1-dose 75+ series) 2030 Meningococcal B Vaccine Aged Out No l onger eligible based on patient's age to complete this topic Meningococcal Vaccine Aged Out No sung janett eligible based on patient's age to complete this topic RSV Immunizations Under 20 Months Aged Out No longer eligible based on patient's age to complete this topic
--- OUTSIDE RECORDS SUMMARY | 2024-10-22 11:28 | XMS_ITS | Encounter Summary ---
Author Organization 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 us Historical Provider Final Res ult documented in this encounter Visit Diagnoses Not on filedocumented in this encounter Additional Health Concerns Infection Onset Date Last Indicated Resolved Time COVID: Suspected 10/05/2024 10/05/2024 10/05/2024 4:12 AM CDT documented as of this encounter Care Teams Hand Salter Relationship Specialty Start Date End Date Neil Mina DO PCP - General Family Medicine 06/06/18 Neil Mina DO PCP - Rolo Attributed PCP 04/06/19 documented as of this encounter
--- OUTSIDE RECORDS SUMMARY | 2024-10-22 11:28 | XMS_ITS | Encounter Summary ---
Author Organization [employer] Address 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
--- OUTSIDE RECORDS SUMMARY | 2024-10-22 11:28 | XMS_ITS | Encounter Summary ---
Author Organization [facility] Address [address] [place] [address] Care Team Providers Care Hydroelectric Plant Structural Engineer Name Role Phone Torres Waters MD Primary Care Provider [phone] Encounter Details Date Type Department Care Team (Late st Contact Info) Description 03/25/2008 Outpatient Historical HIS MAMM VAN Conversion, History Other Screening Mammogram Social History Tobacco Use Types Packs/Day Years Used Date Smoking Tobacco: Never Assessed Comments Unknown Sex and Gender Information Value Date Recorded Sex Assigned at Not on file Legal Sex Female 3:29 AM POULTRY INSEMINATOR Gender Identity Not on file Sexual Orientation Not on file documented as of this encounter Plan of Treatment Not on file documented as of this encounter Procedures Procedure Name Priority Date/Time Associated Diagnosis Comments MAMMO SCREENING BILAT Routine 03/25/2008 3:36 PM CDT documented in this encounter Results * MAMMO SCREENING BILAT (03/25/2008 3:36 PM CDT) Anatomical Region Laterality Modality Breast Bilateral Other 03/25/2008 3:36 PM CDT Narrative 03/26/2008 1:17 PM CDT [address] [address] Admit Date: 03/25/2008 NADEEM ZAMAN Sex: F Admit Prov: DOCTOR, NOT O Date: 1955 Primary Care Prov: CMRN: [id number] Room: [facility] SSN: [address] [place] [address] IMAGING SERVICES Ordering Prov: DOCTOR, NOT O Accession Number: [id number] Interpretation BILATERAL SCREENING MAMMOGRAM 03/25/2008 Reason for this examination: Annual screening study. FINDINGS: The parenchyma is very dense bilaterally. This lowers the sensitivity of mammography in detecting disease. There is no mass, malignant calcification, lymphadenopathy, architectural distortion or other sign of malignancy. No change since 03/2006. SUMMARY: Dense mammary parenchyma. No mammographic evidence of malignancy. Overall assessment: BIRADS category 1 - Negative Assessment BIRADS: 1-Negative Recommendation: Normal interval follow-up Dictated by: SHAKEEL NEGRETE Electronically signed by: SHAKEEL NEGRETE 03/26/2008 13:16 Transcribed: 03/26/2008 13:07 AMK Procedure Note Shakeel Negrete MD - 03/26/2008 [facility] [address] [place], [place] [address] Admit Date: 03/25/2008 NADEEM ZAMAN Sex: F Admit Prov: DOCTOR, NOT O Date: 1955 Primary Care Prov: CMRN: [id number] Room: [facility] SSN: [address] [place] [address] IMAGING SERVICES Ordering Prov: DOCTOR, NOT O Interpretation BILATERAL SCREENING MAMMOGRAM 03/25/2008 Reason for this examination: Annual screening study. FINDINGS: The parenchyma is very dense bilaterally. This lowersthe sensitivity of mammography in detecting disease. There is no mass, malignant calcification, lymphadenopathy, architectural distortion orother sign of malignancy. No change since 03/2006. SUMMARY: Dense mammary parenchyma. No mammographic evidence of malignancy. Overall assessment: BIRADS category 1 - Negative Assessment BIRADS: 1-Negative Recommendation: Normal interval follow-up Dictated by: SHAKEEL NEGRETE Electronically signed by: SHAKEEL NEGRETE 03/26/2008 13:16 Transcribed: 03/26/2008 13:07 AMK us History Conversion MAMMO ORDERABLES Final Result documented in this encounter Visit Diagnoses Diagnosis Other screening mammogram documented in this encounter Care Teams Hydroelectric Plant Structural Engineer Relationship Specialty [place] [address] [place] [address] PCP - General 10/4/02 documented as of this encounter
--- OUTSIDE RECORDS SUMMARY | 2024-10-22 11:28 | XMS_ITS | Encounter Summary ---
Author Organization [employer] Address 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
--- OUTSIDE RECORDS SUMMARY | 2024-10-22 11:28 | XMS_ITS | Encounter Summary ---
Author Organization [facility] Facility Care Team Providers Care Fitness Services Manager Name Role Phone Neil Mina DO Primary Care Provider + Neil Mina DO Unavailable [phone] Encounter Details Date Type Department Care Team (Latest Contact Info) Description 12/18/2015 Orders Only [facility] CLINCONV ProviderAntwan MD [address] [place] [address] Social History Tobacco Use Types Packs/Day Years Used Date Smoking Tobacco: Never Assessed Comments Unknown Sex and Gender Information Value Date Recorded Sex Assigned at Not on file Legal Sex Female 2:29 AM BEAUTY CONSULTANT Gender Identity Female 03/18/2020 5:41 AM CDT Sexual Orientation Straight 03/18/2020 5: 42 AM CDT documented as of this encounter Plan of Treatment Not on file documented as of this encounter Procedures Procedure Name Priority Date/Time Associated Diagnosis Comments COLONOSCOPY - SCAN 12/18/2015 12 :00 AM CDT documented in this encounter Results * COLONOSCOPY - SCAN (12/18/2015 12:00 AM CDT) Narrative 12/18/2015 12:00 AM CDT Ordered by an unspecified provider. Historical Provider Final Res ult documented in this encounter Visit Diagnoses Not on filedocumented in this encounter Additional Health Concerns Infection Onset Date Last Indicated Resolved Time COVID: Suspected 10/05/2024 10/05/202410/05/2024 4:12 AM CDT documented as of this encounter Care Teams Fitness Services Manager Relationship Specialty Start Date End Date Neil Mina DO PCP - General Family Medicine 06/06/18 Neil Mina DO PCP - Rolo Attributed PCP 04/06/19 documented as of this encounter
--- OUTSIDE RECORDS SUMMARY | 2024-10-22 11:28 | XMS_ITS | Encounter Summary ---
Author Organization [facility] Address [address] [facility] Attn: [place] [address] Care Team Providers Care Legal Project Manager Name Role Phone Torres Waters MD Primary Care Provider Encounter Details Date Type Department Care Team (Late st Contact Info) Description 02/22/1990 [place] [address] [facility] [address] [place] [address] Social History Tobacco Use Types Packs/Day Years Used Date Smoking Tobacco: Never Assessed Comments Unknown Sex and Gender Information Value Date Recorded Sex Assigned at Not on file Legal Sex Female 3:29 AM RESEARCH DEVELOPMENT MANAGER Gender Identity Not on file Sexual Orientation Not on file documented as of this encounter Plan of Treatment Not on file documented as of this encounter Visit Diagnoses Not on filedocumented in this encounter Care Teams Legal Project Manager Relationship Specialty [place] [address] [facility] [address] [place], [place] [id number] PCP - General 03/09/02 documented as of this encounter
--- OUTSIDE RECORDS SUMMARY | 2024-10-22 11:28 | XMS_ITS | Encounter Summary ---
Author Organization [facility] Address [address] [facility] Attn: Epic Prelude ADT [place] [address] Care Team Providers Care Metal Roofer Name Role Phone Torres Waters MD Primary Care Provider [phone] Encounter Details Date Type Department Care Team (Late st Contact Info) Description 01/23/1996 Outpatient Historical Jaylen He Social History Tobacco Use Types Packs/Day Years Used Date Smoking Tobacco: Never Assessed Comments Unknown Sex and Gender Information Value Date Recorded Sex Assigned at Not on file Legal Sex Female 3:29 AM MARKET RESEARCH MANAGER Gender Identity Not on file Sexual Orientation Not on file documented as of this encounter Plan of Treatment Not on file documented as of this encounter Visit Diagnoses Not on filedocumented in this encounter Care Teams Metal Roofer Relationship Specialty [place] [id number] [address] PCP - General 03/09/02 documented as of this encounter
--- OUTSIDE RECORDS SUMMARY | 2024-10-22 11:28 | XMS_ITS | Encounter Summary ---
Author Organization [facility] Facility Care Team Providers Care Car Framer Name Role Phone Neil Mina DO Primary Care Provider + Neil Mina DO Unavailable [phone] Encounter Details Date Type Department Care Team (Latest Contact Info) Description 03/23/2016 Orders Only [facility] CLINCONV ProviderAntwan MD [address] [place] [address] Social History Tobacco Use Types Packs/Day Years Used Date Smoking Tobacco: Never Assessed Comments Unknown Sex and Gender Information Value Date Recorded Sex Assigned at Not on file Legal Sex Female 2:29 AM CHEESE GRADER Gender Identity Female 03/18/2020 5:41 AM CDT Sexual Orientation Straight 03/18/2020 5: 42 AM CDT documented as of this encounter Plan of Treatment Not on file documented as of this encounter Procedures Procedure Name Priority Date/Time Associated Diagnosis Comments PROCEDURE - RESULT 03/23/2016 12 :00 AM CDT documented in this encounter Results * PROCEDURE - RESULT (03/23/2016 12:00 AM CDT) Narrative 03/23/2016 12:00 AM CDT Ordered by an unspecified provider. Historical Provider Final Res ult documented in this encounter Visit Diagnoses Not on filedocumented in this encounter Additional Health Concerns Infection Onset Date Last Indicated Resolved Time COVID: Suspected 10/05/2024 10/05/202410/05/2024 4:12 AM CDT documented as of this encounter Care Teams Car Framer Relationship Specialty Start Date End Date Neil Mina DO PCP - General Family Medicine 06/06/18 Neil Mina DO PCP - Rolo Attributed PCP 04/06/19 documented as of this encounter
--- OUTSIDE RECORDS SUMMARY | 2024-10-22 11:28 | XMS_ITS | Encounter Summary ---
Author Organization [email or web address] Address [address] [place] [address] Care Team Providers Care Wood Room Hand Name Role Phone Torres Waters MD Primary Care Provider Encounter Details Date Type Department Care Team (Latest Contact Info) Description 03/09/2002 Outpatient Historical [facility] [place] [address] [facility] [address] [place] [address] SCREENING MAMM-MAILG NEOPL-OTHER (Primary Dx) Social History Tobacco Use Types Packs/Day Years Used Date Smoking Tobacco: Never Assessed Comments Unknown Sex and Gender Information Value Date Recorded Sex Assigned at Not on file Legal Sex Female 3:29 AM EXHAUST MACHINE OPERATOR Gender Identity Not on file Sexual Orientation Not on file documented as of this encounter Plan of Treatment Not on file documented as of this encounter Visit Diagnoses Diagnosis Other screening mammogram- Primary documented in this encounter Care Teams Wood Room Hand Relationship Specialty [place] [address] [facility] [address] [place] [address] PCP - General 03/09/02 documented as of this encounter
--- OUTSIDE RECORDS SUMMARY | 2024-10-22 11:28 | XMS_ITS | Encounter Summary ---
Author Organization [facility] Address [address] [place] [address] Care Team Providers Care Implementation Project Manager Name Role Phone Torres Waters MD Primary Care Provider Encounter Details Date Type Department Care Team (Late st Contact Info) Description 03/17/2004 Outpatient Historical [place] [address] [address] SCREENING MAMM-MAILG NEOPL-OTHER (Primary Dx) Social History Tobacco Use Types Packs/Day Years Used Date Smoking Tobacco: Never Assessed Comments Unknown Sex and Gender Information Value Date Recorded Sex Assigned at Not on file Legal Sex Female 3:29 AM DISPUTE RESOLUTION ANALYST Gender Identity Not on file Sexual Orientation Not on file documented as of this encounter Plan of Treatment Not on file documented as of this encounter Visit Diagnoses Diagnosis Other screening mammogram- Primary documented in this encounter Care Teams Implementation Project Manager Relationship Specialty [place] [address] [facility] [address] [place] [address] PCP - General 03/09/02 documented as of this encounter
--- OUTSIDE RECORDS SUMMARY | 2024-10-22 11:28 | XMS_ITS | Encounter Summary ---
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
--- OUTSIDE RECORDS SUMMARY | 2024-10-22 11:28 | XMS_ITS | Encounter Summary ---
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 Historical Provider [facility] CATALAN Final Result documented in this encounter Visit Diagnoses Not on filedocumented in this encounter Additional Health Concerns Infection Onset Date Last Indicated Resolved Time COVID: Suspected 10/05/2024 10/05/2024 10/05/2024 4:12 AM CDT documented as of this encounter Care Teams Computer Security Manager Relationship Specialty Start Date End Date Neil Mina DO PCP - General Family Medicine 06/06/18 Neil Mina DO PCP - Rolo Attributed PCP 04/06/19 documented as of this encounter
[2024-10-22 11:32] LABS: Estimated Glomerular Filt Rate 45
== END 2024-10-22 10:45 | disposition home or self-care (01) ==
PROVIDERS: PCP Family Medicine; Visit Provider Urology
DX: R93.429 Abnormal radiologic findings on diagnostic imaging of unspecified kidney (principal); N28.1 Cyst of kidney, acquired; N28.89 Other specified disorders of kidney and ureter
CPT/HCPCS: 74018; 74178; Q9967